=== PATIENT | male | born 1970 | race Caucasian/White ===

== ENCOUNTER 2023-10-09 10:21 | Inpatient (IN) | payer SELFPAY ==
[2023-10-09] VITALS (49 sets, daily range): BP systolic 109–195; BP diastolic 83–144; PULSE 122–154; RESP 18–35; TEMP 36.7–38.2; O2SAT 83–97; BMI 35.5; BMI 32.2
--- NOTE | 2023-10-09 10:26 | ECG_ITS ---
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 Measurements Intervals [place] Rate: 159 P: 0 NE: 0 QRS: 77 QRSD: 82 T: 70 QT: 265 QTc: 432 Interpretive Statements Sinus/ Atrial tachycardia No previous ECG available for comparison Electronically Signed On 10-09-2023 11:43:02 CDT by Hasmukh Jorge M.D. [id number]
--- NOTE | 2023-10-09 10:31 | XR_ITS ---
WS: [id number] Exam: XR chest 1V portable [id number] Date/Time of Exam: 10/09/2023 10:33 AM Reason For Exam: sob Comparison 03/03/2010. There is infiltrate and atelectasis in the RIGHT lower lung zone. Remaining lung mcgee are clear. Th e lungs are fully inflated. No pleural effusions. Normal cardiomediastinal silhouette. Bony structure s are intact. XR/XR chest 1V portable [id number] IMPRESSION: 1. Infiltrate and atelectasis in the RIGHT lower lung zone. Suspicious for pneu monia.
--- NOTE | 2023-10-09 10:33 | W.ED.SOB ---
HPI - SOB/Dyspnea General: Chief Complaint: Shortness of Breath/Dyspnea Stated Complaint: SOB Time Seen by Provider: 10/09/23 10:23 Source: patient Mode of arrival: ambulatory Limitations: no limitations History of Present Illness: HPI Narrative: 53-year-old male with history of alcoholism states he drinks daily states the last 2 days he is had severe shakes feeling short of breath having chest pain or palpitations. He is diaphoretic here in tachycardic in the 140s with hypertension. He states he had 2 drinks this morning he denies any vomiting no history of any heart problems denies any drug use Associated symptoms: Deny abdominal pain, chest pain, fever(s), nausea or vomiting Related Data Home Medications Medication Instructions Recorded Confirmed No Known Home Medications 05/28/20 10/09/23 Allergies Allergy/AdvReac Type Severity Reaction Status Date / Time No Known Allergies Allergy Verified 05/28/20 16:30 Review of Systems Const: Denies: fever(s), chills, body aches or change in appetite ENMT: Denies: throat pain or dental pain Card: Denies: chest pain Resp: Reports: dyspnea GI: Denies: abdominal pain, nausea, vomiting or diarrhea Musc: Denies: neck pain or back pain Skin/Breast: Denies: rash Neuro: Denies: headache(s) PFSH ED PFSH: Medical History (Updated 10/09/23 @ 14:19 by He Naranjo MD) Alcohol dependence History of CVA (cerebrovascular accident) 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 Social History (Updated 10/09/23 @ 13:32 by Darcy Miller MD) Smoking and tobacco/nicotine status: current every day tobacco/nicotine user Alcohol intake: current Alcohol use comment: daily Physical Exam Const: COMMON NORMALS: patient oriented x3 GENERAL APPEARANCE: ill appearing HENMT: COMMON NORMALS: normocephalic and atraumatic HEAD & SCALP: normocephalic and atraumatic Eye: COMMON NORMALS: Equal, round and reactive pupils present and EOMs intact bilaterally PUPIL: Yes Equal, round and reactive pupils present Neck/C-Spine: COMMON NORMALS: full ROM and supple Chest: COMMONS NORMALS: normal inspection of the chest Resp: COMMON NORMALS: normal respiratory effort, No retractions, No use of accessory muscles and clear to auscultation bilaterally AUSCULTATION: clear to auscultation bilaterally Cardio: COMMON NORMALS: No murmurs present (Cardio) RATE: tachycardic GI: COMMON NORMALS: Normal to inspection, nondistended, normoactive bowel sounds present, Soft to palpation, non-tender and no masses PALPATION: Yes Soft to palpation Extremity: COMMON NORMALS: normal to inspection and full ROM Neuro: COMMON NORMALS: patient oriented x3, moves all extremities and no focal motor deficits Psych: COMMON NORMALS: mental status grossly normal, Normal thought process present and cooperative THOUGHT PROCESS: Normal thought process present Skin: COMMON NORMALS: no rashes or lesions noted and no wounds GENERAL SKIN EXAM: no rashes or lesions noted Course Vital Signs: Vital signs: Vital Signs Temperature 98.0 F 10/09/23 10:28 Pulse Rate 142 H 10/09/23 13:18 Respiratory Rate 18 10/09/23 12:16 Blood Pressure 164/107 10/09/23 12:55 Pulse Oximetry 94 10/09/23 12:55 Oxygen Delivery Me thod Room Air 10/09/23 12:55 Oxygen Flow Rate 2 10/09/23 12:16 MDM - SOB/Dyspnea Medical Decision Making Patient presents here with severe alcohol withdrawal has been given multiple doses of Ativan has had some improvement in blood pressure and heart rate he is also found to have a pneumonia along with him metabolic acidosis. His lactate is improved here after IV fluids edema started on IV antibiotics as well I spoke to hospitalist will admit to ICU for his pneumonia and his alcohol withdrawal Medical Records I reviewed the patient's medical records. Lab Data I reviewed the patient's lab results. 10/09/23 10:30 10/09/23 10:30 Labs/Radiology: Radiology Impressions Chest X-Ray 10/09/23 10:31 IMPRESSION: 1. Infiltrate and atelectasis in the RIGHT lower lung zone. Suspicious for pneumonia. Chest CTA 10/09/23 11:10 IMPRESSION: 1. No evidence of pulmonary embolus. 2. Patchy tree-in-bud opacities with subsegmental atelectasis in the RIGHT upper lobe and RIGHT middle lobe likely infectious or inflammatory. 3. No focal consolidation or pleural fluid. Laboratory Results WBC 9.73 10^3/uL (3.29-11.43) 10/09/23 10:30 RBC 4.78 10^6/uL (3.85-5.65) 10/09/23 10:30 Hgb 17.60 g/dL (11.27-16.99) H 10/09/23 10:30 Hct 49.9 % (37-53) 10/09/23 10:30 MCV 104.4 fl (82-101) H 10/09/23 10:30 MCH 36.8 pg (27-33) H 10/09/23 10:30 MCHC 35.3 g/dL (30-55) 10/09/23 10:30 RDW 12.9 % (12.1-15.1) 10/09/23 10:30 Plt Count 102 10^3/cmm (157-399) L 10/09/23 10:30 MPV 10.2 fL (7.4-10.4) 10/09/23 10:30 Neut % (Auto) 86.0 % 10/09/23 10:30 Lymph % (Auto) 7.8 % 10/09/23 10:30 Phelps % (Auto) 5.5 % 10/09/23 10:30 Eos % (Auto) 0.1 % 10/09/23 10:30 Baso % (Auto) 0.3 % 10/09/23 10:30 Neut # (Auto) 8.36 10^3/uL (1.8-7.7) H 10/09/23 10:30 Lymph # (Auto) 0.8 10^3/uL (0.8-4.8) 10/09/23 10:30 Phelps # (Auto) 0.5 10^3/uL (0.2-0.9) 10/09/23 10:30 Eos # (Auto) 0.0 10^3/uL (0.0-0.8) 10/09/23 10:30 Baso # (Auto) 0.0 10^3/uL (0.0-0.1) 10/09/23 10:30 Nucleated RBC % (auto) 0 % 10/09/23 10:30 Nucleated RBCs # 0.0 /100WBC 10/09/23 10:30 PT 13.10 SECONDS (12.1-14.9) 10/09/23 10:30 INR 0.96 (0.8-1.2) 10/09/23 10:30 APTT 32.9 SECONDS (23.9-36.7) 10/09/23 10:30 D-Dimer 8.03 ug/mLFEU (0-0.59) H 10/09/23 10:30 Specimen Type Arterial 10/09/23 11:24 Sample Site Radial, left 10/09/23 11:24 ABG pH 7.41 (7.35-7.45) 10/09/23 11:24 ABG pCO2 30.3 mmHg (35-45) L 10/09/23 11:24 ABG pO2 71.3 mmHg (80.0-100.0) L 10/09/23 11:24 ABG PO2/FiO2 Ratio 274 10/09/23 11:24 ABG HCO3 19.1 mmol/L (22-26) L 10/09/23 11:24 ABG Base Excess -4.3 mmol/L (-2.0-2.0) L 10/09/23 11:24 Jasper Test Pos 10/09/23 11:24 Hematocrit 47.3 % (42-52) 10/09/23 11:24 O2 Delivery Device Nc 10/09/23 11:24 FiO2 26.0 % 10/09/23 11:24 Geotechnical Field Technician ID glc 10/09/23 11:24 Sodium 129 mmol/L (136-145) L 10/09/23 10:30 Sodium 130 mmol/L (136-145) L 10/09/23 10:30 Potassium 4.1 mmol/L (3.5-5.1) 10/09/23 10:30 Potassium 4.2 mmol/L (3.5-5.1) 10/09/23 10:30 Chloride 86 mmol/L (98-107) L 10/09/23 10:30 Chloride 87 mmol/L (98-107) L 10/09/23 10:30 Carbon Dioxide 15 mmol/L (22-29) L 10/09/23 10:30 Carbon Dioxide 16 mmol/L (22-29) L 10/09/23 10:30 Anion Gap 31.2 (5-19) H 10/09/23 10:30 Anion Gap 32.1 (5-19) H 10/09/23 10:30 BUN 4 mg/dL (6-20) L 10/09/23 10:30 BUN 4 mg/dL (6-20) L 10/09/23 10:30 Creatinine 0.8 mg/dL (0.7-1.2) 10/09/23 10:30 Creatinine 0.8 mg/dL (0.7-1.2) 10/09/23 10:30 GFR Calculation 100.7 mL/min (90-130) 10/09/23 10:30 GFR Calculation 100.7 mL/min (90-130) 10/09/23 10:30 Glucose 132 mg/dL (65-115) H 10/09/23 10:30 Glucose 133 mg/dL (65-115) H 10/09/23 10:30 Calculated Osmolality 267 mOsm/kg (285-295) L 10/09/23 10:30 Calculated Osmolality 269 mOsm/kg (285-295) L 10/09/23 10:30 Lactic Acid 12.5 mmol/L (0.5-2.2) H* 10/09/23 10:30 Lactic Acid (Sepsis) 4.2 mmol/L (0.5-2.2) H* 10/09/23 13:26 Calcium 9.1 mg/dL (8.5-10.5) 10/09/23 10:30 Calcium 9.3 mg/dL (8.5-10.5) 10/09/23 10:30 Phosphorus 3.8 mg/dL (2.5-4.5) 10/09/23 10:30 Magnesium 1.6 mg/dL (1.7-2.3) L 10/09/23 10:30 Total Bilirubin 1.5 mg/dL (0.15-1.2) H 10/09/23 10:30 AST 90 U/L (0-40) H 10/09/23 10:30 ALT 94 U/L (0-41) H 10/09/23 10:30 Alkaline Phosphatase 115 U/L (40-130) 10/09/23 10:30 Troponin T Baseline 18 ng/L (0-15) H 10/09/23 10:30 Troponin T 120 Minute 18.55 ng/L (0-15) H 10/09/23 12:30 Delta Troponin T 0.55 ABS# (0-10) 10/09/23 12:30 NT-Pro-B Natriuret Pep 338 pg/mL (0-125) H 10/09/23 10:30 Total Protein 7.3 g/dL (6.6-8.7) 10/09/23 10:30 Albumin 3.9 g/dL (3.5-5.2) 10/09/23 10:30 Globulin 3.4 g/dL (1.3-4.6) 10/09/23 10:30 Ethyl Alcohol < 10 mg/dL (0-10) 10/09/23 10:30 Serum Ketones Negative (Negative) 10/09/23 11:41 SARS-CoV-2 Ag (Rapid) Negative (Negative) 10/09/23 12:25 All radiology interpretation(s) finalized by discharge EKG Data EKG 1: I personally reviewed and interpreted this EKG as follows: EKG Interpretation Date: 10/09/23 EKG interpretation time: 10:50 Interpretation: sinus tach hr [address] or t wave abnormalities qrs 94 qtc 379 Critical Care Time Critical Care Time: Critical Care Time: Yes Total Critical Care Time: 55 Attestation: The high probability of a clinically significant, sudden or life threatening deterioration of the patient's resp system(s) required my full and direct attention, intervention and personal management. The critical care time is as shown. This time is in addition to time spent performing any reported procedures but includes the following: [x] Data and vital sign review and interpretation [x] Patient assessment, examination and intervention [x] Documentation [x] Medication orders and management Discharge Plan Discharge Patient Disposition: Admitted As Inpatient Admit Provider: Darcy Miller Clinical Impression: High anion gap metabolic acidosis, Alcohol dependence with withdrawal, Pneumonia Condition: Stable Coding Level of Care Code ED Optical Designer for Daynag Melisa
[2023-10-09] MEDS: LORazepam 2 mg/mL INJ 1 mL IVP ×6 (10:35→16:17)
--- NOTE | 2023-10-09 10:35 | PC.NURSE ---
PATIENT PLACED ON 2 L NC PER REQUEST FOR COMFORT.
[2023-10-09] MEDS: dilTIAZem 5 mg/mL SDV 5 mL 20 MG IVP (10:36)
[2023-10-09] MEDS: sodium chloride 0.9% 1,000 ML 999 ML IV ×3 (10:36→12:23)
[2023-10-09 10:47] LABS: Basophils % 0.3 %; Eosinophils % 0.1 %; Hematocrit 49.9 % (37-53); Lymphocytes # 0.8 10^3/uL (0.8-4.8); Lymphocytes % 7.8 %; Mean Corpuscular HGB Conc 35.3 g/dL (30-55); Mean Corpuscular Hemoglobin 36.8 pg (27-33); Mean Corpuscular Volume 104.4 fl (82-101); Mean Platelet Volume 10.2 fL (7.4-10.4); Monocytes # 0.5 10^3/uL (0.2-0.9); Monocytes % 5.5 %; Neutrophils # 8.36 10^3/uL (1.8-7.7); Nucleated Red Blood Cells % 0 %; Platelet Count 102 10^3/cmm (157-399); Red Blood Count 4.78 10^6/uL (3.85-5.65); Red Cell Distribution Width 12.9 % (12.1-15.1); White Blood Count 9.73 10^3/uL (3.29-11.43)
--- NOTE | 2023-10-09 10:50 | ECG_ITS ---
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 Measurements Intervals [place] Rate: 138 P: 39 NM: 145 QRS: 67 QRSD: 94 T: 59 QT: 299 QTc: 453 Interpretive Statements SINUS TACHYCARDIA No previous ECG available for comparison Electronically Signed On 10-09-2023 11:00:14 CDT by Hasmukh Jorge M.D. [id number]
[2023-10-09 11:01] LABS: Troponin(5th) Baseline 18 ng/L (0-15)
[2023-10-09 11:03] LABS: D Dimer 8.03 ug/mLFEU (0-0.59)
[2023-10-09 11:08] LABS: Alanine Aminotransferase 94 U/L (0-41); Albumin Level 3.9 g/dL (3.5-5.2); Alkaline Phosphatase 115 U/L (40-130); Anion Gap 31.2 (5-19); Aspartate Amino Transferase 90 U/L (0-40); Blood Urea Nitrogen 4 mg/dL (6-20); Calcium 9.1 mg/dL (8.5-10.5); Carbon Dioxide 16 mmol/L (22-29); Chloride 87 mmol/L (98-107); Globulin 3.4 g/dL (1.3-4.6); Glomerular Filtration Rate 100.7 mL/min (90-130); Glucose 133 mg/dL (65-115); Magnesium 1.6 mg/dL (1.7-2.3); NT Pro B Type Natriuretic Pept 338 pg/mL (0-125); Osmolality Calculated 269 mOsm/kg (285-295); Potassium 4.2 mmol/L (3.5-5.1); Sodium 130 mmol/L (136-145); Total Bilirubin 1.5 mg/dL (0.15-1.2); Total Protein 7.3 g/dL (6.6-8.7)
[2023-10-09 11:09] LABS: Alcohol Level < 10 mg/dL (0-10)
--- NOTE | 2023-10-09 11:10 | CT_ITS ---
WS: [id number] CTA OF THE CHEST WITH PULMONARY EMBOLISM PROTOCOL TECHNIQUE: High-resolution contrast enhanced CTA of the chest with coronal and sagittal reformatted i jhoans with pulmonary embolism protocol. MIP images are also reviewed. CLINICAL INFORMATION: sob COMPARISON: None. DLP: 491.[address] scans at [facility] use at least one of these dose optimization techniques: automated e xposure control; mA and/or kV adjustment per patient size (includes targeted exams where dose is matc hed to clinical indication); or iterative reconstruction. FINDINGS: Proximal main pulmonary arteries are normal. Normal segmental and subsegmental pulmonary arteries. No evidence of pulmonary embolus. No mediastinal or hilar lymphadenopathy. No axillary lymphadenopathy. Adrenal glands are normal. Part ially visualized RIGHT renal cyst. Diffuse fatty infiltration of the liver. Small esophageal hiatal h ernia. Partially visualized mesenteric edema in the upper abdomen. Hypertrophic changes thoracic spine. Tree-in-bud type infiltrates in the RIGHT upper lobe and RIGHT m iddle lobe with subsegmental atelectasis. No focal pneumonia or pleural fluid. CT/CT angio chest PE protcl [id number] IMPRESSION: 1. No evidence of pulmonary embolus. 2. Patchy tree-in-bud opacities with subsegmental atelectasis in the RIGHT upp er lobe and RIGHT middle lobe likely infectious or inflammatory. 3. No focal consolidation or pleural fluid.
[2023-10-09 11:36] LABS: ABG PCO2 30.3 mmHg (35-45); ABG PH Result 7.41 (7.35-7.45); Arterial Blood Gas Hematocrit 47.3 % (42-52); Base Excess ABG -4.3 mmol/L (-2.0-2.0); Blood Gas Allen Test Pos; Blood Gas Operator Identificat glc; Blood Gas Sample Site Radial, left; Blood Gas Sample Type Arterial; HCO3 ABG 19.1 mmol/L (22-26); Oxygen Device NC; PO2 ABG 71.3 mmHg (80.0-100.0); PO2 FiO2 Ratio Arterial Blood 274
[2023-10-09 11:43] LABS: Lactic Sepsis W/Reflex 12.5 mmol/L (0.5-2.2)
[2023-10-09] MEDS: cefTRIAXone 1,000 mg SDV 1000 MG IVP (11:47)
[2023-10-09] MEDS: azithromycin 500 MG in sodium chloride 0.9% 250 ML 250 MG IV (11:50)
[2023-10-09 12:15] LABS: Ketone (Acetest) Serum Negative (Negative)
[2023-10-09] MEDS: iohexol 350 mg/mL 500 mL Btl (per mL) IV ×2 (12:16→15:20)
--- NOTE | 2023-10-09 12:48 | P.HP_ITS ---
Providers/Chief Complaint 2 Admitting Physician: Darcy Miller MD Primary Care Provider: Unknown Chief Complaint: SOB History of Present Illness Vinh Fuentes is a 53 year old male who presented to the emergency room on the day of admission via EMS with complaints of shortness of breath and the shakes. He has a history of drinking alcohol daily and has had the shakes for couple of days. He denied vomiting or chest pain to ER physicians. Noted to be tachycardic, diaphoretic and hypertensive. He had received more than 10 mg of Ativan by the time of my evaluation and was not able to answer questions or follow commands. Workup in the emergency room identified right sided pneumonia for which she received Rocephin and azithromycin. He had an elevated lactic acid and was started on fluids at 30 mL/kg. Not hypotensive but did have a drop in blood pressures from 190 systolic at presentation to 140 systolic after benzodiazepines. Heart rate remains tachycardic. Limited clinical information available. 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 Was discharged non aspirin and statin. Seen at walk in clinic in 2020 for cellulitis. Alcohol and tobacco use documented at that time. No other known visits to [facility]. PDMP check and review of available external medications shows no prescriptions. PFSH not updated/unobtainable from patient: due to medical condition and due to mental status Vitals/I&O/Wt Last Vital Signs Temp 98.0 F 10/09/23 10:28 Pulse 132 H 10/09/23 12:16 Resp 18 10/09/23 12:16 BP 143/93 10/09/23 12:16 Pulse Ox 95 10/09/23 12:16 O2 Del Method Nasal Cannula 10/09/23 12:16 O2 Flow Rate 2 10/09/23 12:16 10/08/23 10/09/23 10/09/23 22:59 06:59 14:59 Intake Total 1999 Balance 1999 Weight last 48 hrs Weight 99.79 kg Physical Exam 2 Narrative: Patient is not currently alert. Does not respond directly to questions but will moan something that sounds like stop intermittently during exam. Very tremulous. EOMI with sevral beat lateral nystagmus noted. [place] sclera. OP dry. Neck supple with good range of motion, no tenderness with movement noted. Course BS bilaterally with upper airway noise. Some cough and crackles, pursed lips intermittently, some retractions, tachypenic. Tachycardic regular rhythm. Airway noises and mumbling preclude other heart sound auscultation at present. Abdomen is soft, no focal tenderness noted. Rotund but not tympanic. Scrotal enlargement noted right sided more than left. Not reducible with several attempts. Discomfort on exam but difficult to localize with current mental status. Some erythema in groin. No areas of bruising noted. Not mottled. Hands with dirt noted. Moves all extremities but not cooperative. Quick SOFA Score: Respiratory Rate: 20 Blood Pressure: 150/100 Julian Coma Scale: 12 qSOFA Score: 1 If qSOFA score 2 or greater, continue: PaO2/FiO2 Ratio (mmHg): 328 Blood Pressure Mean: 126 Bilirubin (mg/dl): 1.5 Platelets (x10?/ml): 102 C reatinine (mg/dl): 0.8 SOFA Score: 5 Evaluation: Current stage of sepsis: severe sepsis Sepsis stage criteria used: [facility] Sep- Crystalloid fluids: 30 mL/kg crystalloid fluids ordered and initiated within 3 hours Blood cultures ordered: Yes Possible source: p ulmonary, GI tract/intra-abdominal and genitourinary Focused Exam: Vital signs: Temp Pulse Resp BP Pulse Ox O2 Del Method O2 Flow Rate 10/09/23 13:18 142 H 10/09/23 12:55 125 H 164/107 94 Room Air 10/09/23 12:16 132 H 18 143/93 95 Nasal Cannula 2 10/09/23 10:34 96 Nasal Cannula 2 10/09/23 10:28 98.0 F 154 H 35 H 195/144 94 Room Air Respiratory exam: crackles present (upper airway noise, throat clearing, able to lay flat and sats okay) and uses accessory muscles (purse lips at times) Cardiovascular exam: tachycardia Peripheral pulse strength: 1+ Faint P eripheral pulse location: Radial and Pedal Skin exam: diaphoretic and other (scattered sores, dirty hands); no mottling Details: enlarged scrotum, not reducible Initial SOFA score 4 at time of my initial examination at 13:48 Date exam was performed: 10/09/23 Time exam was performed: 13:48 2 Sepsis Screen No Definite Risk 10/09/23 13:18 Respiratory Rate 20 breaths/min H (12 - 18) 10/09/23 14:30 Blood Pressure 150/100 mmHg 10/09/23 14:30 Julian Coma Scale Score 12 10/09/23 14:48 Quick SOFA Score 1 10/09/23 16:33 SOFA Score: 2 ABG PO2/FiO2 Ratio 286 10/09/23 16:25 Julian Coma Scale Score 12 10/09/23 14:48 Blood Pressure Mean 126 mmHg 10/09/23 12:55 Total Bilirubin 1.5 mg/dL (0.15-1.2) H 10/09/23 10:30 Platelet Count 102 10^3/cmm (157-399) L 10/09/23 10:30 Creatinine 0.8 mg/dL (0.7-1.2) 10/09/23 10:30 SOFA Score 5 10/09/23 16:33 Data 10/09/23 10:30 10/09/23 10:30 Other Labs: Radiology Impressions Chest X-Ray 10/09/23 10:31 IMPRESSION: 1. Infiltrate and atelectasis in the RIGHT lower lung zone. Suspicious for pneumonia. Chest CTA 10/09/23 11:10 IMPRESSION: 1. No evidence of pulmonary embolus. 2. Patchy tree-in-bud opacities with subsegmental atelectasis in the RIGHT upper lobe and RIGHT middle lobe likely infectious or inflammatory. 3. No focal consolidation or pleural fluid. Laboratory Results WBC 9.73 10^3/uL (3.29-11.43) 10/09/23 10:30 RBC 4.78 10^6/uL (3.85-5.65) 10/09/23 10:30 Hgb 17.60 g/dL (11.27-16.99) H 10/09/23 10:30 Hct 49.9 % (37-53) 10/09/23 10:30 MCV 104.4 fl (82-101) H 10/09/23 10:30 MCH 36.8 pg (27-33) H 10/09/23 10:30 MCHC 35.3 g/dL (30-55) 10/09/23 10:30 RDW 12.9 % (12.1-15.1) 10/09/23 10:30 Plt Count 102 10^3/cmm (157-399) L 10/09/23 10:30 MPV 10.2 fL (7.4-10.4) 10/09/23 10:30 Neut % (Auto) 86.0 % 10/09/23 10:30 Lymph % (Auto) 7.8 % 10/09/23 10:30 Hickman % (Auto) 5.5 % 10/09/23 10:30 Eos % (Auto) 0.1 % 10/09/23 10:30 Baso % (Auto) 0.3 % 10/09/23 10:30 Neut # (Auto) 8.36 10^3/uL (1.8-7.7) H 10/09/23 10:30 Lymph # (Auto) 0.8 10^3/uL (0.8-4.8) 10/09/23 10:30 Hickman # (Auto) 0.5 10^3/uL (0.2-0.9) 10/09/23 10:30 Eos # (Auto) 0.0 10^3/uL (0.0-0.8) 10/09/23 10:30 Baso # (Auto) 0.0 10^3/uL (0.0-0.1) 10/09/23 10:30 Nucleated RBC % (auto) 0 % 10/09/23 10:30 Nucleated RBCs # 0.0 /100WBC 10/09/23 10:30 D-Dimer 8.03 ug/mLFEU (0-0.59) H 10/09/23 10:30 Specimen Type Arterial 10/09/23 11:24 Sample Site Radial, left 10/09/23 11:24 ABG pH 7.41 (7.35-7.45) 10/09/23 11:24 ABG pCO2 30.3 mmHg (35-45) L 10/09/23 11:24 ABG pO2 71.3 mmHg (80.0-100.0) L 10/09/23 11:24 ABG PO2/FiO2 Ratio 274 10/09/23 11:24 ABG HCO3 19.1 mmol/L (22-26) L 10/09/23 11:24 ABG Base Excess -4.3 mmol/L (-2.0-2.0) L 10/09/23 11:24 [place] Test Pos 10/09/23 11:24 Hematocrit 47.3 % (42-52) 10/09/23 11:24 O2 Delivery Device Nc 10/09/23 11:24 FiO2 26.0 % 10/09/23 11:24 Property Condition Assessor ID glc 10/09/23 11:24 Sodium 130 mmol/L (136-145) L 10/09/23 10:30 Potassium 4.2 mmol/L (3.5-5.1) 10/09/23 10:30 Chloride 87 mmol/L (98-107) L 10/09/23 10:30 Carbon Dioxide 16 mmol/L (22-29) L 10/09/23 10:30 Anion Gap 31.2 (5-19) H 10/09/23 10:30 BUN 4 mg/dL (6-20) L 10/09/23 10:30 Creatinine 0.8 mg/dL (0.7-1.2) 10/09/23 10:30 GFR Calculation 100.7 mL/min (90-130) 10/09/23 10:30 Glucose 133 mg/dL (65-115) H 10/09/23 10:30 Calculated Osmolality 269 mOsm/kg (285-295) L 10/09/23 10:30 Lactic Acid 12.5 mmol/L (0.5-2.2) H* 10/09/23 10:30 Calcium 9.1 mg/dL (8.5-10.5) 10/09/23 10:30 Magnesium 1.6 mg/dL (1.7-2.3) L 10/09/23 10:30 Total Bilirubin 1.5 mg/dL (0.15-1.2) H 10/09/23 10:30 AST 90 U/L (0-40) H 10/09/23 10:30 ALT 94 U/L (0-41) H 10/09/23 10:30 Alkaline Phosphatase 115 U/L (40-130) 10/09/23 10:30 Troponin T Baseline 18 ng/L (0-15) H 10/09/23 10:30 Delta Troponin T 0.55 ABS# (0-10) 10/09/23 12:30 NT-Pro-B Natriuret Pep 338 pg/mL (0-125) H 10/09/23 10:30 Total Protein 7.3 g/dL (6.6-8.7) 10/09/23 10:30 Albumin 3.9 g/dL (3.5-5.2) 10/09/23 10:30 Globulin 3.4 g/dL (1.3-4.6) 10/09/23 10:30 Ethyl Alcohol < 10 mg/dL (0-10) 10/09/23 10:30 Serum Ketones Negative (Negative) 10/09/23 11:41 Micro: Microbiology 10/09/23 11:16 Blood Culture - Preliminary Blood SPECIMEN COLLECTED 10/09/23 10:30 Blood Culture - Preliminary Blood SPECIMEN COLLECTED A&P Assessment and plan (1) Pneumonia: Organism unknown, present on admission with patchy tree-in-bud opacities with subsegmental atelectasis noted on CTA of the chest and complaints of increasing shortness of breath noted by ER. With right sided features aspiration pneumonia is within differential. Does have a slight left shift. Not lymphopenic. COVID antigen negative. Qualifiers: Laterality: right Lung location: upper lobe of lung (2) Alcohol dependence with withdrawal: Alcoholic with daily drinking per limited information available. Has not been drinking as much for a few days and presents with acute withdrawal with delirium. No seizures thus far. Has required high-dose benzodiazepines thus far. Has associated significant tachycardia and hypertension. Additionally has elevated liver enzymes and low platelets. Qualifiers: Complication of substance-induced condition: with delirium Qualified Code(s): F10.231 - Alcohol dependence with withdrawal delirium (3) High anion gap metabolic acidosis: Serum ketones negative. Not known to be diabetic. Lactic acid is elevated. Could be from alcohol. No available information suggesting methanol, ethylene glycol or isopropyl alcohol ingestion but it is certainly within the differential as or other toxins. Urine drug screen is ordered but pending. No report of GI losses. Renal function currently normal. (4) Elevated troponin: Negative 2-hour tropoinin delta. EKG with nonspecific changes. Could be type II process from tachycardia and significant hypertension present on admission. (5) Thrombocytopenia: Platelet count 102 at presentation. Currently suspect secondary to alcohol use (6) Elevated liver enzymes: Elevated total bilirubin, AST and ALT at presentation 1.6, 90 and 94 respectively. Alkaline phosphatase is normal. No baselines for comparison. Chronic alcohol use, other hepatotoxicity, hepatic congestion, infection, inflammation all within differential. (7) Elevated d-dimer: D-dimer at presentation 8. CTA of the chest no evidence of PE. (8) Scrotal anomaly: Enlarged scrotum with what feels like nonreducible hernia extending along the right side. Hydrocele also within the differential but seems less likely. Testes are palpable. Duration of hernia is not known at this time. (9) Severe sepsis: Severe sepsis (by SEP-1 criteria) from infection is within differential of overall presentation at this point in time though I strongly suspect majority of abnormalities suggesting severe sepsis are secondary to alcohol use and its aftereffects in the setting of acute withdrawal. Potential sources of infection include pulmonary and genitourinary/GI with scrotal abnormally noted. Other potential sources of infection not currently evident should also be considered. Patient has had fever, tachycardia, tachypnea, left shift without elevation in wbc, lactic acidosis, elevated liver enzymes, elevated D-dimer, elevated tropoin, low platelets, mental status change but not hypotension. Is status post 3 liters fluid in ED and has been started on antibiotics. (10) Nicotine dependence, cigarettes, uncomplicated: Not known to have a history of COPD or asthma though it is certainly possibility, current information limited. Plan Mild elevation in BNP Hypomagnesemia Elevated hemoglobin Inpatient admission, ICU level care Continue Rocephin and azithromycin Add breathing treatments as needed Oxygen therapy as needed Monitor ABGs and clinical condition closely as may require intubation both due to clinical presentation and degree of sedation Administer additional benzodiazepines and monitor response, may have to consider alternative agents for alcohol withdrawal symptoms Received thiamine in the emergency room, will attempt to continue oral thiamine and folate plus multivitamin thereafter Replace magnesium Continue fluids Check lipase, PT, PTT, UA; follow up UDS, repeat lactic acid Serial electrolytes until anion gap closes Telemetry monitoring Continue serial cardiac enzymes Repeat EKG in the morning along with A1c and lipid panel for risk stratification Limited echocardiogram to evaluate ejection fraction Check acute hepatitis panel Scrotal ultrasound Blood cultures are pending VTE prophylaxis: SCD, no pharmacological DVT prophylaxis due to low platelets GI Prophylaxis: PPI Antibiotics: Rocephin and Azithromycin started 10/07 Pending studies: blood cultures, covid testing Telemetry: ordered Clarke: ordered Line(s): peripheral IVs Studies to date during hospital stay include: chest x-ray, CTA of the chest and pending scrotal ultrasound Disposition plan: depends on clinical course Code Status: Full Code Supportive care otherwise Need to see if we can locate family to get more prior history and update them on current condition Attestations 2 Medical Necessity Statement*: Anticipated stay greater than two midnights in this gentleman presenting with signs of severe alcohol withdrawal along with findings concerning for severe sepsis by SEP-1 criteria, putting him at risk for progression to sepsis or septic shock by SEP-3 criteria. He has required high-dose benzodiazepines already with limited impact clinically. May require intubation and airway protection for adequate sedation as part of his acute withdrawal management. He will require continuous IV fluids, medication management, serial laboratory studies, close clinical monitoring and is at high risk for rapid clinical decline up to and including the possibility of without and even with treatment. He has an enlarged scrotum of unclear duration so other foci of infection beyond pulmonary a consideration. Further work up pending. Coding Level of Care Code Critical Care >/= 30 minutes Critical care time (in minutes): 100 The high probability of a clinically significant, sudden or life threatening deterioration, as referenced in this documentation, required my full and direct attention, intervention and personal management. The critical care time shown is in addition to time spent performing any reported separately billable procedures and includes the following: [x] Data and vital sign review and interpretation [x ] Patient assessment, examination and intervention [x] Medication orders and management [x] Patient/Family updates as able [x] Care Coordination and Documentation. Diagnoses Scrotal anomaly Q55.20 Severe sepsis A41.9; R65.20 Pneumonia J18.9 Laterality: right Lung location: upper lobe of lung Alcohol dependence with withdrawal delirium F10.231 Complication of substance-induced condition: with delirium High anion gap metabolic acidosis E87.29 Elevated troponin R79.89 Thrombocytopenia D69.6 Elevated liver enzymes R74.8 Elevated d-dimer R79.89 Nicotine dependence, cigarettes, uncomplicated F17.210
[2023-10-09 12:54] LABS: Troponin 5 2HR 18.55 ng/L (0-15); Troponin 5 2HR Delta 0.55 ABS# (0-10)
[2023-10-09] MEDS: multivitamin therapeutic Tablet 1 TAB PO (12:54)
[2023-10-09 13:03] LABS: Reflex Lactate Order REFLEX LACTIC ORDERD
--- NOTE | 2023-10-09 13:17 | PC.NURSE ---
PT IS REACHING AND PULLING ON ALL LINES INCLUDING IV AND MUSHROOM SPAWN MAKER. NURSE USED SOFT RESTRAINTS.
[2023-10-09 13:32] LABS: SARS Covid-2 Antigen Negative (Negative)
[2023-10-09 13:37] LABS: Anion Gap 32.1 (5-19); Blood Urea Nitrogen 4 mg/dL (6-20); Calcium 9.3 mg/dL (8.5-10.5); Carbon Dioxide 15 mmol/L (22-29); Chloride 86 mmol/L (98-107); Glomerular Filtration Rate 100.7 mL/min (90-130); Glucose 132 mg/dL (65-115); Osmolality Calculated 267 mOsm/kg (285-295); Phosphorus 3.8 mg/dL (2.5-4.5); Potassium 4.1 mmol/L (3.5-5.1); Sodium 129 mmol/L (136-145)
[2023-10-09 13:53] LABS: Lactic Acid level (Lactate) 4.2 mmol/L (0.5-2.2)
[2023-10-09] MEDS: LORazepam 2 mg/mL INJ 1 mL 4 MG IVP (13:54)
--- NOTE | 2023-10-09 13:54 | US_ITS ---
WS: [id number] TESTICULAR ULTRASOUND HISTORY: swelling COMPARISON: None available. TECHNIQUE: Real-time and color Doppler imaging or utilized to perform a testicular ultrasound. Limited evaluation of the testicles. Patient was taken for stat exam. Right testicle: 4.2 cm x 2.7 cm x 2.7 cm. Normal size and echogenicity. No mass or torsion. Normal color Doppler is present throughout. Systolic and diastolic velocities are both present. Testicle is being displaced by a large mass along the inguinal canal. Right epididymis: Not visualized well. Left testicle: 4.3 cm x 2.3 cm x 2.0 cm. Normal size and echogenicity. No mass or torsion. Normal color Doppler is present throughout. Systolic and diastolic velocities are both present. Limited evaluation the testicle. There is scrotal wall thickening. Possible mass posterior displacing the testicle. Left epididymis: Not visualized. US/US scrotum [id number] IMPRESSION: 1. Limited evaluation of the testicles. No torsion or mass identified. 2. There is a complex mass extending along the inguinal canals displacing both testicles inferiorly and anteriorly. Differential of this mass is a large omen jefe hernia or complex ascites. CT evaluation would be helpful.
[2023-10-09 13:58] LABS: INR 0.96 (0.8-1.2); Partial Thromboplastin Time 32.9 SECONDS (23.9-36.7)
[2023-10-09 14:04] LABS: ABG PCO2 32.7 mmHg (35-45); ABG PH Result 7.42 (7.35-7.45); Alveolar-Arterial Oxygen Gradi 5.2 mmHg (5-10); Arterial Blood Gas Hematocrit 46.5 % (42-52); Base Excess ABG -2.3 mmol/L (-2.0-2.0); Blood Gas Allen Test Pos; Blood Gas Operator Identificat glc; Blood Gas Sample Site Radial, right; Blood Gas Sample Type Arterial; Carboxyhemoglobin 2.8 %THgb (0.4-20.1); HCO3 ABG 21.3 mmol/L (22-26); Ionized Calcium Level - ABG 1.1 mmol/L (1.1-1.4); Oxygen Device ROOM AIR; Oxygen Saturation ABG 94.6; PO2 ABG 68.9 mmHg (80.0-100.0); PO2 FiO2 Ratio Arterial Blood 328; Potassium Level - ABG 3.9 mmol/L (3.5-5.0); Total Hemoglobin 15.2 g/dL (14-18)
[2023-10-09] MEDS: LORazepam 2 mg/mL INJ 1 mL 6 MG IVP ×3 (14:39→22:15)
[2023-10-09] MEDS: pantoprazole 40 mg SDV IVP (14:40)
[2023-10-09] MEDS: magnesium sulfate premix 2 GM/50 ML PIGGYBACK IV (14:42)
--- NOTE | 2023-10-09 14:57 | CTR_ITS ---
PROCEDURE INFORMATION: Exam: CT Abdomen And Pelvis With Contrast Exam date and time: 10/09/2023 3:11 PM Age: 53 years old Clinical indication: Abdominal pain; Additional info: Inguinal hernia with extension to scrotum, sepsis, please scan to mid femur to include entire scrotum, scrotum TECHNIQUE: Imaging protocol: Computed tomography of the abdomen and pelvis with contrast. Axial, coronal and sagittal reformatted images were created and reviewed. Radiation optimization: All CT scans at this facility use at least one of these dose optimization techniques: automated exposure control; mA and/or kV adjustment per patient size (includes targeted exams where dose is matched to clinical indication); or iterative reconstruction. Contrast material: [id number]; Contrast volume: 100 ml; Contrast route: INTRAVENOUS (IV); COMPARISON: US scrotum [id number] 10/09/2023 2:42 PM RADIATION DOSE METRICS: Total DLP (mGy-cm): 1106 FINDINGS: Lungs: Linear stranding and groundglass at the lung bases, likely due to atelectasis and/or scarring. Superimposed reticulonodular infiltrates in the right middle lobe, suggestive of small airway disease. Liver: Mild hepatomegaly. Diffuse hepatic steatosis. Gallbladder and biliary ducts: No radiodense gallstones. No biliary ductal dilatation. Pancreas: Mild peripancreatic stranding, edema and fluid, tracking along the left paracolic gutter. Spleen: Coarse calcified splenic granulomata. Adrenal glands: Normal. No mass. Kidneys and ureters: Right renal cysts, measuring up to 3 cm (no follow-up is indicated based on the imaging appearance). No radiodense calculi. No hydronephrosis. Stomach and bowel: Scattered colonic diverticula without evidence of diverticulitis. No obstruction. No bowel wall thickening. No pneumatosis. Appendix: Normal. Intraperitoneal space: No organized collection. No free air. Vasculature: Mild atherosclerotic disease. No aneurysm or dissection. Lymph nodes: No pathologically enlarged lymph nodes. Urinary bladder: Unremarkable as visualized. Reproductive: Unremarkable. Bones/joints: No acute osseous abnormality. Degenerative changes. Soft tissues: Large, fat containing right inguinal hernia with associated edema and stranding in the hernia sac, possibly secondary to fat incarceration. CT/CT abdomen pelvis w con* [id number] IMPRESSION: 1. Acute pancreatitis, as described above. Correlate with serum amylase and lipase levels. No drainable fluid collection. No necrosis or hemorrhage. Follow-up to resolution is recommended. 2. Large, fat containing right inguinal hernia with associated edema and stranding in the hernia sac, possibly secondary to fat incarceration. 3. Superimposed reticulonodular infiltrates in the right middle lobe, suggestive of small airway disease. Infection cannot be excluded. 4. Additional findings, as above. COMMENTS: Consistent with the [employer]'s Incidental Findings Committee white paper (J Am Sandra Radiol 2018): Any incidental renal lesion less than 1 cm or classified as too small to characterize, or any incidental cystic renal lesion characterized as simple-appearing, is likely benign. No follow-up imaging is recommended for these lesions per consensus recommendations based on imaging criteria.
[2023-10-09 15:21] LABS: Charge for UA Resulting for Rev
--- NOTE | 2023-10-09 15:29 | ECG_ITS ---
[facility] Test Date: 2023-10-09 Pat Name: Vinh Fuentes Department: Room: [facility] Gender: Male Cardiac Rehabilitation Specialist: : 1970 Requested By: He Naranjo Order Number: [id number] Caroline MD: Hasmukh Jorge M.D. Measurements Intervals [place] Rate: 131 P: 55 KS: 167 QRS: 73 QRSD: 83 T: 59 QT: 309 QTc: 458 Interpretive Statements SINUS TACHYCARDIA MODERATE ST DEPRESSION [0.05+ mV ST DEPRESSION] Compared to ECG 10/09/2023 10:50:36 ST (T wave) deviation now present Electronically Signed On 10-09-2023 16:28:15 CDT by Hasmukh Jorge M.D. [id number]
[2023-10-09] MEDS: lactated ringers 1,000 ML 200 ML IV (15:33)
[2023-10-09 15:43] LABS: Amphetamines Screen Urine Negative (Negative); Barbiturates Screen Urine Negative (Negative); Benzodiazepines Screen Urine Positive (Negative); Cocaine Screen Urine Negative (Negative); Opiate Screen Urine Negative (Negative); PCP Screen Urine Negative (Negative); THC Screen Urine Negative (Negative)
--- NOTE | 2023-10-09 16:07 | XRR_ITS ---
PROCEDURE INFORMATION: Exam: XR Chest Exam date and time: 10/09/2023 4:14 PM Age: 53 years old Clinical indication: Device placement; Other: Central line placement; Prior surgery; Surgery date: Post-operative (0-2 days); Additional info: S/P central line placement TECHNIQUE: Imaging protocol: Radiologic exam of the chest. Views: 1 view. COMPARISON: CT angio chest PE protcl [id number] 10/09/2023 12:04 PM FINDINGS: Tubes, catheters and devices: Right internal jugular central venous catheter in place with its tip overlying the cavoatrial junction. Lungs: Unremarkable. No consolidation. Pleural spaces: Unremarkable. No pleural effusion. No clinically significant pneumothorax. Heart/Mediastinum: Unremarkable. No cardiomegaly. Bones/joints: No acute osseous abnormality. Degenerative changes. XR/XR chest 1V portable [id number] IMPRESSION: Right internal jugular central venous catheter in place with its tip overlying the cavoatrial junction. No clinically significant pneumothorax.
[2023-10-09 16:10] LABS: Bilirubin Urine Not Tested (Negative); Blood Urine Not Tested (Negative); Glucose Urine UA Not Tested (Normal); Ketones Urine Not Tested (Negative); Leukocyte Esterase Urine Not Tested (Negative); Nitrate Urine Not Tested (Negative); Protein Urine Not Tested (Negative); Urine Appearance Clear (CLEAR); Urine Color Orange (Yellow); Urobilinogen Urine Not Tested mg/dL (Negative)
[2023-10-09 16:11] LABS: UA Manual Slide Review YES; UA Slide Review UA Slide Review Perf
--- NOTE | 2023-10-09 16:11 | P.ANES_ITS ---
Anesthesia Procedures Procedure/Date: 10/09/23 Central Venous Insert: Central Venous Line: Right IJ central line Time Out Performed: Yes Consent: requested by attending/covering physician Central Line: New Anesthesia monitors: pulse oximetry, EKG and BP cuff Vein cannulated: right internal jugular Ultrasound used: to identify patency to vessel and to visualize needle entry to vein Post procedure: Obtain Chest X-Ray Additional Comments: Patient agitated during procedure. ICU staff including bottle machine operator help sedate patient. Ultrasound indicating wire in vessel. All ports were flushed with saline. Line was secured with suture.
[2023-10-09 16:13] LABS: Add Urine Culture? No; Hyaline Casts Urine 25-40 /lpf; Mucus Urine 1+ /hpf; RBC Urine 0-4 /hpf (0-2); Squamous Epithelial Cell Urine 0-4 /hpf (0-5); WBC Urine 0-4 /hpf (0-5)
[2023-10-09 16:38] LABS: ABG PCO2 34.8 mmHg (35-45); ABG PH Result 7.45 (7.35-7.45); Arterial Blood Gas Hematocrit 45.5 % (42-52); Base Excess ABG 0.7 mmol/L (-2.0-2.0); Blood Gas Allen Test Pos; Blood Gas Operator Identificat MONRO; Blood Gas Sample Site Radial, left; Blood Gas Sample Type Arterial; HCO3 ABG 24.2 mmol/L (22-26); Oxygen Device ROOM AIR; PO2 ABG 60.1 mmHg (80.0-100.0); PO2 FiO2 Ratio Arterial Blood 286
[2023-10-09 16:53] LABS: Lipase 621 U/L (13-60)
[2023-10-09 17:00] LABS: Glucose Point of Care 100 mg/dL (70-110)
[2023-10-09 17:04] LABS: Troponin 5 6HR 24.99 ng/L (0-15); Troponin 5 6HR Delta 6.99 ng/L (0-12)
--- NOTE | 2023-10-09 17:40 | PC.NURSE ---
Brother Tony Fuentes and his son Sg Fuentes came in to see pt at differing times this afternoon. The emergent CVL was discussed with both. BOth were in agreement to having the CVL in place.
[2023-10-09] MEDS: metroNIDAZOLE IV 500 MG/100 ML PREMIX 100 MG IV (17:55)
[2023-10-09 18:55] LABS: Anion Gap 15.8 (5-19); Blood Urea Nitrogen 5 mg/dL (6-20); Calcium 8.1 mg/dL (8.5-10.5); Carbon Dioxide 24 mmol/L (22-29); Chloride 94 mmol/L (98-107); Creatinine Clr Calc Pharmacy 177.9244; Glomerular Filtration Rate 173.3 mL/min (90-130); Glucose 98 mg/dL (65-115); Magnesium 2.4 mg/dL (1.7-2.3); Osmolality Calculated 267 mOsm/kg (285-295); Phosphorus 2.4 mg/dL (2.5-4.5); Potassium 3.8 mmol/L (3.5-5.1); Sodium 130 mmol/L (136-145)
[2023-10-09] MEDS: clotrimazole-betamethasone cream 15gm 1 APPLIC TOPICAL (19:06)
[2023-10-09] MEDS: sodium chloride 0.9 % (flush) syringe 10 mL IV (19:06)
--- NOTE | 2023-10-09 19:13 | PC.NURSE ---
Shift summary: Pt arrived to ICU, agitated and with soft restraints. Dr Miller, at bedside. More ativan admin. Noted pt's scrotum large, misshaped and firm. US ordered and done. More ativan admin per Dr Miller orders. Pt then to CT of abd and scrotum. Magnesium admin LR and abx started. Pt on CIWA with 6mg of Ativan instead of usual 2mg. Pt seems to be more coherent after the ativan admin. CVL inserted emergently. Surgeon consulted for inginual hernia. Bowel blod flow still present will continue to monitor. Pt's Brother , showed up was agreeable to plan of care including CVL. Then Pt's son, Sg arrived, he was also agreeable to paln of care including the CVL. Pt incontinent of urine twice. Fole inserted, he tolerated it reasonable well. Soft restraints remain in palce for his safety as his hands wander and pick and pull at lines and tubes. Pt did deny any pain.
[2023-10-09] MEDS: potassium phosphate (mEq K) 40 MEQ in sodium chloride 0.9% (100 ml) 100 ML 27.27 MEQ IV (19:59)
[2023-10-09 20:54] LABS: Glucose Point of Care 93 mg/dL (70-110)
[2023-10-09] MEDS: dextrose 5%-sod chloride 0.45% 1,000 ML 200 ML IV (21:26)
[2023-10-10] VITALS (79 sets, daily range): BP systolic 82–158; BP diastolic 65–110; PULSE 79–160; RESP 14–41; TEMP 36.1–37.4; O2SAT 86–100; BMI 33.0
[2023-10-10 00:56] LABS: Anion Gap 12.9 (5-19); Blood Urea Nitrogen 5 mg/dL (6-20); Calcium 7.8 mg/dL (8.5-10.5); Carbon Dioxide 25 mmol/L (22-29); Chloride 97 mmol/L (98-107); Creatinine Clr Calc Pharmacy 127.0889; Glomerular Filtration Rate 117.5 mL/min (90-130); Glucose 112 mg/dL (65-115); Magnesium 2.1 mg/dL (1.7-2.3); Osmolality Calculated 270 mOsm/kg (285-295); Phosphorus 3.9 mg/dL (2.5-4.5); Potassium 3.9 mmol/L (3.5-5.1); Sodium 131 mmol/L (136-145)
[2023-10-10] MEDS: LORazepam 2 mg/mL INJ 1 mL 6 MG IVP ×4 (01:06→07:32)
[2023-10-10] MEDS: metroNIDAZOLE IV 500 MG/100 ML PREMIX 100 MG IV ×3 (01:08→17:43)
[2023-10-10] MEDS: D5-NS 0.45% + KCL 20 mEq 20 MEQ/1,000 ML BAG 150 MEQ IV ×4 (02:48→23:37)
[2023-10-10 04:28] LABS: Basophils % 0.1 %; Eosinophils % 0.3 %; Hematocrit 40.5 % (37-53); Lymphocytes # 0.5 10^3/uL (0.8-4.8); Lymphocytes % 7.4 %; Mean Corpuscular HGB Conc 34.6 g/dL (30-55); Mean Corpuscular Hemoglobin 36.6 pg (27-33); Mean Corpuscular Volume 105.7 fl (82-101); Mean Platelet Volume 10.7 fL (7.4-10.4); Monocytes # 0.5 10^3/uL (0.2-0.9); Neutrophils % 84.9 %; Nucleated Red Blood Cells % 0 %; Red Blood Count 3.83 10^6/uL (3.85-5.65); Red Cell Distribution Width 13.4 % (12.1-15.1)
[2023-10-10 04:43] LABS: Magnesium 1.9 mg/dL (1.7-2.3); Phosphorus 2.9 mg/dL (2.5-4.5)
[2023-10-10 04:44] LABS: Lipase 183 U/L (13-60)
[2023-10-10 04:45] LABS: Chol HDL Ratio 1.62 mg/dL (1.0-5.00); Cholesterol 110 mg/dL (0-200); HDL Cholesterol 68 mg/dL (60-100); LDL Cholesterol Calculated 30 mg/dL (50-129); LDL HDL Ratio 0.44 RATIO (0.00-3.22); Triglycerides 58 mg/dL (0-150); Uric Acid 3.3 mg/dL (3.4-7.0)
[2023-10-10 04:46] LABS: Alanine Aminotransferase 75 U/L (0-41); Albumin Level 2.8 g/dL (3.5-5.2); Alkaline Phosphatase 80 U/L (40-130); Anion Gap 12.5 (5-19); Aspartate Amino Transferase 129 U/L (0-40); Blood Urea Nitrogen 5 mg/dL (6-20); Calcium 7.6 mg/dL (8.5-10.5); Carbon Dioxide 24 mmol/L (22-29); Chloride 97 mmol/L (98-107); Creatinine Clr Calc Pharmacy 148.2704; Globulin 2.8 g/dL (1.3-4.6); Glomerular Filtration Rate 140.4 mL/min (90-130); Glucose 96 mg/dL (65-115); Osmolality Calculated 267 mOsm/kg (285-295); Potassium 3.5 mmol/L (3.5-5.1); Sodium 130 mmol/L (136-145); Total Bilirubin 1.1 mg/dL (0.15-1.2); Total Protein 5.6 g/dL (6.6-8.7)
[2023-10-10 04:53] LABS: Platelet Count 69 10^3/cmm (157-399); Slide Review Slide Review Perform
[2023-10-10 05:03] LABS: Hepatitis A Antibody IgM Non-Reactive (Nonreactive); Hepatitis B Core IgM Non-Reactive (Nonreactive); Hepatitis B Surface Antigen Non-Reactive (Nonreactive); Hepatitis C Virus Antibody Non-Reactive (Nonreactive)
[2023-10-10 05:18] LABS: Estmated Average Glucose 117; Hemoglobin A1C 5.7 % (4.0-6.0)
[2023-10-10 06:03] LABS: ABG PCO2 35.1 mmHg (35-45); PO2 ABG 61.1 mmHg (80.0-100.0)
[2023-10-10 06:04] LABS: Base Excess ABG 1.2 mmol/L (-2.0-2.0); HCO3 ABG 24.7 mmol/L (22-26); Oxygen Device NC
[2023-10-10] MEDS: nicotine 21 mg Patch 1 PATCH TRANSDERMA (06:27)
[2023-10-10] MEDS: clotrimazole-betamethasone cream 15gm 1 APPLIC TOPICAL ×3 (07:19→21:03)
[2023-10-10] MEDS: multivitamin therapeutic Tablet 1 TAB PO (07:19)
[2023-10-10] MEDS: folic acid 1 mg Tablet PO (07:19)
[2023-10-10] MEDS: magnesium oxide 400 mg tablet PO (07:19)
[2023-10-10 07:20] LABS: Glucose Point of Care 102 mg/dL (70-110)
[2023-10-10] MEDS: sodium chloride 0.9 % (flush) syringe 10 mL IV ×2 (07:27→17:43)
[2023-10-10 08:47] LABS: ABG PH Result 7.46 (7.35-7.45); Arterial Blood Gas Hematocrit 44.8 % (42-52); Blood Gas Allen Test Pos; Blood Gas Sample Site Radial, right; Blood Gas Sample Type Arterial
[2023-10-10] MEDS: thiamine 100 mg Tablet PO (09:31)
[2023-10-10] MEDS: PHENobarbital 130 mg/mL SDV 1 mL 100 MG IVP (09:33)
[2023-10-10] MEDS: pantoprazole 40 mg SDV IVP (09:34)
[2023-10-10] MEDS: cefTRIAXone 1,000 mg SDV 1000 MG IVP (09:59)
--- NOTE | 2023-10-10 10:08 | ECG_ITS ---
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 Measurements Intervals Wren Rate: 147 P: 28 WV: 138 QRS: 87 QRSD: 84 T: 56 QT: 292 QTc: 457 Interpretive Statements SINUS TACHYCARDIA, POSSIBLE ATRIAL FLUTTER NONSPECIFIC T-WAVE ABNORMALITY ABNORMAL RHYTHM ECG Compared to ECG 10/09/2023 15:29:37 T-wave abnormality now present ST (T wave) deviation no longer present Electronically Signed On 10-11-2023 9:05:15 CDT by Brie Crystal M.D. [id number]
[2023-10-10] MEDS: PHENobarbital 130 mg/mL SDV 1 mL 80 MG IVP ×2 (11:20→15:04)
[2023-10-10] MEDS: azithromycin 500 MG in sodium chloride 0.9% 250 ML 250 MG IV (11:21)
[2023-10-10] MEDS: dexmedeTOMIDine 0.9 % NaCL 400 MCG/100 ML PREMIX IV (11:23)
[2023-10-10 11:36] LABS: Glucose Point of Care 108 mg/dL (70-110)
[2023-10-10] MEDS: LORazepam 2 mg Tablet 6 MG PO (12:21)
--- NOTE | 2023-10-10 12:53 | P.PN_ITS ---
Subjective 2 Subjective: patient was seen this morning, he is alert to person, to place, not to time, he has episodes of confusion he is still requiring high doses of ativan, still having severe tremors, tachycardia, does improve with ativan but is shortlived, -plans is place patient on phenobarbital for severe alcohol withdrawal, nicriomi trem -was given 100mg phenobarbital -his heart rate have impeoved and tremor s have improved, is more alert and awake -will coutinue phenobarbital 80mg q3h fo r 2 doses -will place patient on precedex drip -monitor in icu closely Vitals/I&O/Wt Last Vital Signs Temp 99.1 F 10/10/23 07:34 Pulse 160 H 10/10/23 12:15 Resp 30 H 10/10/23 12:15 BP 117/85 10/10/23 12:15 Pulse Ox 90 10/10/23 12:00 O2 Del Method Nasal Cannula 10/10/23 12:15 O2 Flow Rate 3 10/10/23 12:15 10/09/23 10/10/23 10/10/23 22:59 06:59 14:59 Intake Total 1150 / 4400 208.5106 / 4608.5106 2400.835 / 2400.835 Output Total 300 / 300 250 / 550 Balance 850 / 4100 -41.4894 / 4058.5106 2400.835 / 2400.835 Weight last 48 hrs Weight 93 kg Weight 90.5 kg Weight 99.79 kg Physical Exam 2 Const: COMMON NORMALS: no acute distress EXAM LIMITATIONS: altered mental status ORIENTATION/CONSCIOUSNESS: Yes awake, Yes oriented to person and Yes oriented to place; not oriented to time and not confused Eye: COMMON NORMALS: Equal, round and reactive pupils present PUPIL: Yes Equal, round and reactive pupils present Neck/C-Spine: COMMON NORMALS: no JVD Resp: COMMON NORMALS: normal respiratory effort, No retractions and No use of accessory muscles OTHER: tachypnea Cardio: COMMON NORMALS: no JVD, regular rhythm, S1 normal heart sound present and S2 normal heart sound present RATE: tachycardic RHYTHM: regular rhythm HEART SOUNDS: S1 normal heart sound present and S2 normal heart sound present GI: COMMON NORMALS: Normal to inspection, nondistended, normoactive bowel sounds present and non-tender Extremity: COMMON NORMALS: no pedal edema Neuro: SENSORIUM/ORIENTATION: Yes oriented to person, Yes oriented to place and No oriented to time Urinary Catheter Management: Clarke: Cath Placed During This Visit: yes Reason for Continuing Indwelling Catheter: Accurate Measurement of Urinary Output in Critically Ill Patients Urinary Catheter Date of Insertion: 10/09/23 Urinary Catheter Time of Insertion: 18:15 Data 10/10/23 04:20 10/10/23 04:20 Micro: Microbiology 10/09/23 11:16 Blood Culture - Preliminary Blood NEGATIVE TO DATE 10/09/23 10:30 Blood Culture - Preliminary Blood NEGATIVE TO DATE 10/09/23 14:53 Legionella Urinary Antigen - Final Urine,Clean Catch A&P Assessment and plan (1) Pneumonia: Organism unknown, present on admission with patchy tree-in-bud opacities with subsegmental atelectasis noted on CTA of the chest and complaints of increasing shortness of breath noted by ER. With right sided features aspiration pneumonia is within differential. Does have a slight left shift. Not lymphopenic. COVID antigen negative. -coutinue IV abx Rocephin and azithromycin Qualifiers: Laterality: right Lung location: upper lobe of lung (2) Alcohol dependence with withdrawal: Alcoholic with daily drinking per limited information available. Has not been drinking as much for a few days and presents with acute withdrawal with delirium. No seizures thus far. Has required high-dose benzodiazepines thus far. Has associated significant tachycardia and hypertension. Additionally has elevated liver enzymes and low platelets. -continue phenobarbital -continue precedex Qualifiers: Complication of substance-induced condition: with delirium Qualified Code(s): F10.231 - Alcohol dependence with withdrawal delirium (3) High anion gap metabolic acidosis: Serum ketones negative. Not known to be diabetic. Lactic acid is elevated. Could be from alcohol. No available information suggesting methanol, ethylene glycol or isopropyl alcohol ingestion but it is certainly within the differential as or other toxins. Urine drug screen is ordered, positivr for benzodiazepines. No report of GI losses. Renal function currently normal. (4) Elevated troponin: Negative 2-hour tropoinin delta. EKG with nonspecific changes. Could be type II process from tachycardia and significant hypertension present on admission. (5) Thrombocytopenia: Platelet count 69k Currently suspect secondary to alcohol use (6) Elevated liver enzymes: Elevated total bilirubin, AST and ALT at presentation 1.6, 90 and 94 respectively. Alkaline phosphatase is normal. No baselines for comparison. Chronic alcohol use, other hepatotoxicity, hepatic congestion, infection, inflammation all within differential. (7) Elevated d-dimer: D-dimer at presentation 8. CTA of the chest no evidence of PE. (8) Scrotal anomaly: looks like hernia, will monitor 2. Large, fat containing right inguinal hernia with associated edema and stranding in the hernia sac, possibly secondary to fat incarceration. (9) Severe sepsis: Severe sepsis (by SEP-1 criteria) from infection is within differential of overall presentation at this point in time though I strongly suspect majority of abnormalities suggesting severe sepsis are secondary to alcohol use and its aftereffects in the setting of acute withdrawal. Potential sources of infection include pulmonary and genitourinary/GI with scrotal abnormally noted. Other potential sources of infection not currently evident should also be considered. Patient has had fever, tachycardia, tachypnea, left shift without elevation in wbc, lactic acidosis, elevated liver enzymes, elevated D-dimer, elevated tropoin, low platelets, mental status change but not hypotension. Is status post 3 liters fluid in ED and has been started on antibiotics. Coutinue IV abx, fluids (10) Nicotine dependence, cigarettes, uncomplicated: Not known to have a history of COPD or asthma though it is certainly possibility, current information limited. (11) Delirium tremens: (12) Acute pancreatitis: -npo -IV fluids -flagyl Plan Mild elevation in BNP Hypomagnesemia Elevated hemoglobin Inpatient admission, ICU level care, phenobarbital, precedex drip Continue Rocephin and azithromycin Add breathing treatments as needed Oxygen therapy as needed Monitor clinical condition closely as may require intubation both due to clinical presentation and degree of sedation Administer additional benzodiazepines and monitor response, may have to consider alternative agents for alcohol withdrawal symptoms Received thiamine in the emergency room, will attempt to continue oral thiamine and folate plus multivitamin thereafter Replace magnesium Continue fluids Telemetry monitoring Continue serial cardiac enzymes Repeat EKG in the morning along with A1c and lipid panel for risk stratification Limited echocardiogram to evaluate ejection fraction Check acute hepatitis panel Scrotal ultrasound Blood cultures are pending VTE prophylaxis: SCD, no pharmacological DVT prophylaxis due to low platelets GI Prophylaxis: PPI Antibiotics: Rocephin and Azithromycin started 10/07 Pending studies: blood cultures, covid testing Telemetry: ordered Clarke: ordered Line(s): peripheral IVs Studies to date during hospital stay include: chest x-ray, CTA of the chest and pending scrotal ultrasound Disposition plan: depends on clinical course Code Status: Full Code Supportive care otherwise Need to see if we can locate family to get more prior history and update them on current condition patient was seen this morning, he is alert to person, to place, not to time, he has episodes of confusion he is still requiring high doses of ativan, still having severe tremors, tachycardia, does improve with ativan but is shortlived, -plans is place patient on phenobarbital for severe alcohol withdrawal, delerium tremens -was given 100mg phenobarbital -his heart rate have impeoved and tremors have improved, is more alert and awake -will coutinue phenobarbital 80mg q3h for 2 doses -will place patient on precedex drip -monitor in icu closely Attestations 2 Medical Necessity Statement*: patient requires hospitalization for delerium tremens, alcohol withdrawl, pneumoniae, tachycardia, sepsis, acute pancreatitis Diagnoses Pneumonia J18.9 Laterality: right Lung location: upper lobe of lung Alcohol dependence with withdrawal delirium F10.231 Complication of substance-induced condition: with delirium High anion gap metabolic acidosis E87.29 Elevated troponin R79.89 Thrombocytopenia D69.6 Elevated liver enzymes R74.8 Elevated d-dimer R79.89 Scrotal anomaly Q55.20 Severe sepsis A41.9; R65.20 Nicotine dependence, cigarettes, uncomplicated F17.210 Delirium tremens F10.931 Acute pancreatitis K85.90
--- NOTE | 2023-10-10 16:00 | PC.NURSE ---
CIWA: Pt sedated at this time, Unable to fully score CIWA. Heart rate much improved, was 140's now in 90's. Resp. even, deep and unlabored.
[2023-10-10 16:55] LABS: Glucose Point of Care 116 mg/dL (70-110)
--- NOTE | 2023-10-10 18:32 | PC.NURSE ---
Shift summary: Pt started the day off tachypneic and tachycardic, 30's and 140's respectively. He had 12mg of Ativan since 4 am at beginning of shift. He received another 6mg due to increased agitation and thrashing around. It did seem to help calm him some. He was alert enough this am to swallow medications. His heart rate stayed elevate 140-150's this am. He could state he was in the hospital and get month and day of week correct. He remains on CIWA. He was started on Phenobarbital and Precedex gtt today. He is at this moment resting with eyes closed with deep and even respirations. His heart rate has improved , 80's now. He requires 3lpm/NC. Precedex gtt is at 0.5mcg/kg/hr. His last CIWA was 4. He had 350ml of orage urine output this shift.
[2023-10-10] MEDS: dexmedeTOMIDine 0.9 % NaCL 400 MCG/100 ML PREMIX 11.63 MCG IV (19:12)
[2023-10-10] MEDS: albuterol 2.5 mg/3 mL Neb INHALATION (19:49)
[2023-10-10 20:57] LABS: Glucose Point of Care 120 mg/dL (70-110)
[2023-10-11] VITALS (29 sets, daily range): BP systolic 89–159; BP diastolic 68–100; PULSE 77–128; RESP 15–28; TEMP 36.4–37.2; O2SAT 91–99
[2023-10-11] MEDS: metroNIDAZOLE IV 500 MG/100 ML PREMIX 100 MG IV ×3 (01:10→17:55)
[2023-10-11 04:39] LABS: Basophils % 0.1 %; Eosinophils # 0.1 10^3/uL (0.0-0.8); Eosinophils % 0.9 %; Hematocrit 37.1 % (37-53); Lymphocytes # 0.9 10^3/uL (0.8-4.8); Lymphocytes % 11.6 %; Mean Platelet Volume 11.1 fL (7.4-10.4); Monocytes # 0.7 10^3/uL (0.2-0.9); Monocytes % 8.5 %; Neutrophils # 6.26 10^3/uL (1.8-7.7); Nucleated Red Blood Cells % 0 %; Platelet Count 69 10^3/cmm (157-399); Red Cell Distribution Width 13.2 % (12.1-15.1); White Blood Count 8.02 10^3/uL (3.29-11.43)
[2023-10-11 04:49] LABS: INR 1.23 (0.8-1.2)
[2023-10-11 04:50] LABS: Alanine Aminotransferase 71 U/L (0-41); Albumin Level 2.6 g/dL (3.5-5.2); Alkaline Phosphatase 72 U/L (40-130); Anion Gap 10.8 (5-19); Aspartate Amino Transferase 102 U/L (0-40); Blood Urea Nitrogen 5 mg/dL (6-20); C Reactive Protein 113.5 mg/L (0.0-4.9); Calcium 7.8 mg/dL (8.5-10.5); Carbon Dioxide 24 mmol/L (22-29); Chloride 101 mmol/L (98-107); Creatinine Clr Calc Pharmacy 180.3133; Globulin 2.6 g/dL (1.3-4.6); Glomerular Filtration Rate 173.3 mL/min (90-130); Glucose 113 mg/dL (65-115); Magnesium 2.1 mg/dL (1.7-2.3); Osmolality Calculated 272 mOsm/kg (285-295); Phosphorus 2.6 mg/dL (2.5-4.5); Potassium 3.8 mmol/L (3.5-5.1); Sodium 132 mmol/L (136-145); Total Bilirubin 0.8 mg/dL (0.15-1.2); Total Protein 5.2 g/dL (6.6-8.7)
[2023-10-11 04:59] LABS: NT Pro B Type Natriuretic Pept 329 pg/mL (0-125); Procalcitonin 0.33 ng/mL (0-0.5)
--- NOTE | 2023-10-11 06:00 | USCV_ITS ---
Vinh Fuentes Age: 53 Gender: M : 1970 Exam Date: 10/11/2023 01:06 Ordering Phys: Darcy Miller MD Technologist: NEMO Exam Location: [facility] [place] Indication: check EF BP: 124 / 98 HR: 96 Rhythm: Atrial fibrillation Technical Quality: Adequate MEASUREMENTS (Male / Female) Normal Values 2D ECHO LV Diastolic Diameter PLAX 4.4 cm 4.2 - 5.9 / 3.9 - 5.3 cm IVS Diastolic Thickness 1.3 cm 0.6 - 1.0 / 0.6 - 0.9 cm IVS Systolic Thickness 1.7 cm LVPW Diastolic Thickness 1.7 cm 0.6 - 1.0 / 0.6 - 0.9 cm LVPW Systolic Thickness 1.6 cm LVOT Diameter 1.9 cm LV Ejection Fraction 2D Teich 56.2 % LV Ejection Fraction MOD 4C 42.4 % LV Ejection Fraction MOD 2C 33.5 % LV Ejection Fraction 2C AL 34.4 % LA Diameter 3.1 cm Aorta at Sinotubular Diameter 3.3 cm IVC Diameter 2.3 cm M-MODE LA Ao Ratio MM 0.9 AV Cusp Separation MM 2.0 cm DOPPLER AV Peak Velocity 106.0 cm/s LVOT Peak Velocity 91.0 cm/s AV Area Cont Eq vti 3.0 cm squared AV Area Cont Eq pk 2.5 cm squared MV Area PHT 5.0 cm squared Mitral E to A Ratio 196.5 TV Peak Velocity 278.0 cm/s TR Peak Velocity 287.0 cm/s TR Peak Gradient 32.9 mmHg TV Peak E Velocity 37.0 cm/s Right Atrial Pressure 3.0 mmHg Pulmonary Artery Systolic Pressu 35.9 mmHg PV Peak Velocity 62.0 cm/s FINDINGS Left Ventricle Normal left ventricular size and systolic function, EF 56%. Grade I/IV diastolic dysfunction (abnormal relaxation filling pattern), normal to mildly elevated filling pressures. Right Ventricle The right ventricle is normal in size and function. Right Atrium The right atrium is normal in size. Left Atrium The left atrium is normal in size. Mitral Valve No gross abnormalities noted. Aortic Valve No gross abnormalities noted Tricuspid Valve No gross abnormalities noted Pulmonic Valve No gross abnormalities noted Pericardium Normal pericardium without effusion. Aorta Normal ascending aorta dimension. IVC The inferior vena cava appears normal. CONCLUSIONS Normal left ventricular size and systolic function, EF 56%. Grade I/IV diastolic dysfunction (abnormal relaxation filling pattern), normal to mildly elevated filling pressures. Normal cardiac chamber sizes. There is no pericardial effusion. There are no intracardiac masses. No similar previous studies are available for comparison Dr Brie Crystal MD FAC (Electronically Signed) Final Date: 11 October 2023 18:11 S
[2023-10-11 07:21] LABS: Glucose Point of Care 97 mg/dL (70-110)
[2023-10-11] MEDS: D5-NS 0.45% + KCL 20 mEq 20 MEQ/1,000 ML BAG 150 MEQ IV (07:22)
[2023-10-11] MEDS: albuterol 2.5 mg/3 mL Neb INHALATION ×2 (07:58→13:54)
[2023-10-11] MEDS: multivitamin therapeutic Tablet 1 TAB PO (08:46)
[2023-10-11] MEDS: PHENobarbital 32.4 mg Tablet 64.8 MG PO ×2 (08:46→17:55)
[2023-10-11] MEDS: pantoprazole 40 mg SDV IVP (08:46)
[2023-10-11] MEDS: thiamine 100 mg Tablet PO (08:46)
[2023-10-11] MEDS: folic acid 1 mg Tablet PO (08:46)
[2023-10-11] MEDS: magnesium oxide 400 mg tablet PO ×2 (08:46→17:55)
[2023-10-11] MEDS: clotrimazole-betamethasone cream 15gm 1 APPLIC TOPICAL ×3 (08:52→20:56)
[2023-10-11] MEDS: cefTRIAXone 1,000 mg SDV 1000 MG IVP (10:45)
[2023-10-11] MEDS: azithromycin 500 MG in sodium chloride 0.9% 250 ML 250 MG IV (10:46)
[2023-10-11 11:40] LABS: Glucose Point of Care 77 mg/dL (70-110)
[2023-10-11] MEDS: dexmedeTOMIDine 0.9 % NaCL 400 MCG/100 ML PREMIX IV (12:42)
--- NOTE | 2023-10-11 12:42 | P.PN_ITS ---
Subjective 2 Subjective: Patient was seen this morning, he is alert to person, place, not to time, he follows commands much more alert and awake, afebrile overnight, tachycardia significantly improved, denies any chest pain, no palpitations, shortness of breath continues to have a mild tremor, no visual auditory or tactile hallucination, he has tolerated phenobarbital well, we discussed transitioning to p.o. phenobarbital, tapering dose, he voices understanding, all questions answered, agreed to proceed, Vitals/I&O/Wt Last Vital Signs Temp 97.6 F 10/11/23 04:00 Pulse 91 10/11/23 10:00 Resp 16 10/11/23 10:00 BP 103/74 10/11/23 10:00 Pulse Ox 95 10/11/23 10:00 O2 Del Method Nasal Cannula 10/11/23 10:00 O2 Flow Rate 3 10/11/23 10:00 10/10/23 10/11/23 10/11/23 22:59 06:59 14:59 Intake Total 1218.644 / 3621.904 2107.585 / 5729.489 544.350 / 544.350 Output Total 350 / 350 950 / 1300 Balance 868.644 / 3271.904 1157.585 / 4429.489 544.350 / 544.350 Weight last 48 hrs Weight 95.5 kg Weight 93 kg Weight 90.5 kg Physical Exam 2 Const: COMMON NORMALS: no acute distress EXAM LIMITATIONS: altered mental status ORIENTATION/CONSCIOUSNESS: Yes awake, Yes oriented to person and Yes oriented to place; not oriented to time Resp: COMMON NORMALS: normal respiratory effort, No retractions, No use of accessory muscles and clear to auscultation bilaterally AUSCULTATION: clear to auscultation bilaterally Cardio: COMMON NORMALS: regular rate, regular rhythm, S1 normal heart sound present and S2 normal heart sound present RATE: regular rate RHYTHM: r egular rhythm HEART SOUNDS: S1 normal heart sound present and S2 normal heart sound present GI: COMMON NORMALS: Normal to inspection, nondistended, normoactive bowel sounds present and non-tender Extremity: COMMON NORMALS: no pedal edema Neuro: SENSORIUM/ORIENTATION: Yes oriented to person, Yes oriented to place and No oriented to time Psych: COMMON NORMALS: mental status grossly normal Urinary Catheter Management: Clarke: Cath Placed During This Visit: yes Reason for Continuing Indwelling Catheter: Acute Urinary Retention or Obstruction Urinary Catheter Date of Insertion: 10/09/23 Urinary Catheter Time of Insertion: 18:15 Data 10/11/23 04:20 10/11/23 04:20 Micro: Microbiology 10/09/23 11:16 Blood Culture - Preliminary Blood NEGATIVE TO DATE 10/09/23 10:30 Blood Culture - Preliminary Blood NEGATIVE TO DATE A&P Assessment and plan (1) Pneumonia: Organism unknown, present on admission with patchy tree-in-bud opacities with subsegmental atelectasis noted on CTA of the chest and complaints of increasing shortness of breath noted by ER. With right sided features aspiration pneumonia is within differential. Does have a slight left shift. Not lymphopenic. COVID antigen negative. -coutinue IV abx Rocephin and azithromycin Qualifiers: Laterality: right Lung location: upper lobe of lung (2) Alcohol dependence with withdrawal: Alcoholic with daily drinking per limited information available. Has not been drinking as much for a few days and presents with acute withdrawal with delirium. No seizures thus far. Has required high-dose benzodiazepines thus far. Has associated significant tachycardia and hypertension. Additionally has elevated liver enzymes and low platelets. -Will place on tapering dose of phenobarbital -continue precedex Qualifiers: Complication of substance-induced condition: with delirium Qualified Code(s): F10.231 - Alcohol dependence with withdrawal delirium (3) High anion gap metabolic acidosis: Serum ketones negative. Not known to be diabetic. Lactic acid is elevated. Could be from alcohol. No available information suggesting methanol, ethylene glycol or isopropyl alcohol ingestion but it is certainly within the differential as or other toxins. Urine drug screen is ordered, positivr for benzodiazepines. No report of GI losses. Renal function currently normal. (4) Elevated troponin: Negative 2-hour tropoinin delta. EKG with nonspecific changes. Could be type II process from tachycardia and significant hypertension present on admission. (5) Thrombocytopenia: Platelet count 69k Currently suspect secondary to alcohol use (6) Elevated liver enzymes: Elevated total bilirubin, AST and ALT at presentation 1.6, 90 and 94 respectively. Alkaline phosphatase is normal. No baselines for comparison. Chronic alcohol use, other hepatotoxicity, hepatic congestion, infection, inflammation all within differential. (7) Elevated d-dimer: D-dimer at presentation 8. CTA of the chest no evidence of PE. (8) Scrotal anomaly: looks like hernia, will monitor 2. Large, fat containing right inguinal hernia with associated edema and stranding in the hernia sac, possibly secondary to fat incarceration. (9) Severe sepsis: Severe sepsis (by SEP-1 criteria) from infection is within differential of overall presentation at this point in time though I strongly suspect majority of abnormalities suggesting severe sepsis are secondary to alcohol use and its aftereffects in the setting of acute withdrawal. Potential sources of infection include pulmonary and genitourinary/GI with scrotal abnormally noted. Other potential sources of infection not currently evident should also be considered. Patient has had fever, tachycardia, tachypnea, left shift without elevation in wbc, lactic acidosis, elevated liver enzymes, elevated D-dimer, elevated tropoin, low platelets, mental status change but not hypotension. Is status post 3 liters fluid in ED and has been started on antibiotics. Coutinue IV abx, fluids (10) Nicotine dependence, cigarettes, uncomplicated: Not known to have a history of COPD or asthma though it is certainly possibility, current information limited. (11) Delirium tremens: (12) Acute pancreatitis: ? IV fluids -IV fluids -flagyl Plan Mild elevation in BNP Hypomagnesemia Elevated hemoglobin Inpatient admission, ICU level care, phenobarbital, precedex drip Continue Rocephin and azithromycin Add breathing treatments as needed Oxygen therapy as needed Monitor clinical condition closely as may require intubation both due to clinical presentation and degree of sedation Administer additional benzodiazepines and monitor response, may have to consider alternative agents for alcohol withdrawal symptoms Received thiamine in the emergency room, will attempt to continue oral thiamine and folate plus multivitamin thereafter Replace magnesium Continue fluids Telemetry monitoring Continue serial cardiac enzymes Repeat EKG in the morning along with A1c and lipid panel for risk stratification Limited echocardiogram to evaluate ejection fraction Check acute hepatitis panel Scrotal ultrasound Blood cultures are pending VTE prophylaxis: SCD, no pharmacological DVT prophylaxis due to low platelets GI Prophylaxis: PPI Antibiotics: Rocephin and Azithromycin started 10/07 Pending studies: blood cultures, covid testing Telemetry: ordered Clarke: ordered Line(s): peripheral IVs Studies to date during hospital stay include: chest x-ray, CTA of the chest and pending scrotal ultrasound Disposition plan: depends on clinical course Code Status: Full Code Supportive care otherwise Need to see if we can locate family to get more prior history and update them on current condition Plan for today, wean phenobarbital dosing, Precedex, monitor for worsening withdrawal symptoms, start clear liquid diet speech therapy eval, PT OT, decrease IV fluids to 100 cc an hour Attestations 2 Medical Necessity Statement*: Patient requires hospitalization for acute alcohol withdrawl, delirium tremens, pancreatitis Diagnoses Pneumonia J18.9 Laterality: right Lung location: upper lobe of lung Alcohol dependence with withdrawal delirium F10.231 Complication of substance-induced condition: with delirium High anion gap metabolic acidosis E87.29 Elevated troponin R79.89 Thrombocytopenia D69.6 Elevated liver enzymes R74.8 Elevated d-dimer R79.89 Scrotal anomaly Q55.20 Severe sepsis A41.9; R65.20 Nicotine dependence, cigarettes, uncomplicated F17.210 Delirium tremens F10.931 Acute pancreatitis K85.90
[2023-10-11 14:44] LABS: Ammonia 21 umol/L (16-60)
[2023-10-11] MEDS: D5-NS 0.45% + KCL 20 mEq 20 MEQ/1,000 ML BAG 100 MEQ IV (16:59)
--- NOTE | 2023-10-11 17:44 | P.CONIM_ITS ---
Providers/Reason For Consult 2 Consulting Physician/Specialty*: Dr. Chucky Shelley, DO/General Surgery Reason for Consult*: Right inguinal hernia Attending Physician: Mihir Ahmadi MD History of Present Illness History of Present Illness Vinh Fuentes is a 53 year old male who presented to the hospital in acute alcohol withdrawal and delirium tremens, who was found to have a large incarcerated right inguinal hernia. Patient is alert to person but not to time right now. HPI and review of systems are limited secondary to this. He tells me that this hernia has been present since he was a kid. It causes him some pain at times with movement but usually is asymptomatic. CT showed that it was incarcerated with fat only. No bowel obstruction. Denies any abdominal pain Review of Systems 2 General: Reports: ROS unobtainable due to mental status Medications/Allergies Home Medications Medication Instructions Recorded Confirmed Last Taken Type No Known Home Medications 05/28/20 10/09/23 Unknown History Allergies Allergy/AdvReac Type Severity Reaction Status Date / Time No Known Allergies Allergy Verified 05/28/20 16:30 Current Medications Generic Name Dose Route Start Last Admin Trade Name Freq PRN Reason Stop Dose Admin Albuterol Sulfate 2.5 mg 10/09/23 17:39 10/11/23 13:54 Albuterol 2.5 Mg/3 Ml Neb INHALATION 2.5 mg Q4H.RESPIRATORY PRN Administration SHORTNESS OF BREATH Betamethasone/Clotrimazole 1 applic 10/09/23 21:00 10/11/23 20:56 Clotrimazole-Betamethasone Cream 15gm TOPICAL 1 applic TID JOAN Administration Ceftriaxone Sodium 1,000 mg 10/10/23 10:00 10/11/23 10:45 Ceftriaxone 1,000 Mg Sdv IVP 1,000 mg Q24H JOAN Administration Protocol Folic Acid 1 mg 10/09/23 14:29 10/11/23 08:46 Folic Acid 1 Mg Tablet PO 1 mg DAILY JOAN Administration Azithromycin 500 mg/ Sodium 250 mls @ 250 mls/hr 10/10/23 11:00 10/11/23 11:49 Chloride IV Infused Q24H JOAN Infusion Protocol Metronidazole 500 mg in 100 mls @ 100 mls/hr 10/09/23 17:15 10/12/23 02:00 Flagyl Iv IV Infused Q8H JOAN Infusion Protocol Potassium Chloride/Dextrose/Sod Cl 20 meq in 1,000 mls @ 100 mls/hr 10/10/23 02:30 10/12/23 02:56 D5-Ns 0.45% + Kcl 20 Meq IV 100 mls/hr .Q10H JOAN Administration Dexmedetomidine/Sodium Chloride 400 mcg in 100 mls @ 0 mls/hr 10/10/23 10:30 10/12/23 03:37 Precedex IV 0 mcg/kg/hr .Q0M JOAN 0 mls/hr Titration Protocol Per Protocol Insulin Human Lispro 0 unit 10/10/23 07:00 10/11/23 21:24 Insulin Lispro 100 Unit/1 Ml SUBCUT Not Given AC&BEDTIME JOAN Protocol Lorazepam 6 mg 10/09/23 17:09 10/10/23 12:21 Lorazepam 2 Mg Tablet PO 6 mg Q4H PRN Administration WITHDRAWAL Protocol Magnesium Oxide 400 mg 10/09/23 18:00 10/11/23 17:55 Magnesium Oxide 400 Mg Tablet PO 400 mg BID JOAN Administration Multivitamins Therapeutic 1 tab 10/10/23 09:00 10/11/23 08:46 Multivitamin Therapeutic Tablet PO 1 tab DAILY JOAN Administration Nicotine 1 patch 10/09/23 17:16 10/10/23 06:27 Nicotine 21 Mg Patch TRANSDERMA 1 patch DAILY PRN Administration nicotine withdrawl Pantoprazole Sodium 40 mg 10/09/23 14:29 10/11/23 08:46 Pantoprazole 40 Mg Sdv IVP 40 mg DAILY JOAN Administration Phenobarbital 64.8 mg 10/11/23 09:00 10/11/23 17:55 Phenobarbital 32.4 Mg Tablet PO 64.8 mg BID JOAN Administration Sodium Chloride 5 - 10 ml 10/09/23 18:15 10/12/23 05:20 Sodium Chloride 0.9 % (Flush) Syringe 10 Ml IV 10 ml Q12H JOAN Administration Thiamine Mononitrate 100 mg 10/10/23 09:00 10/11/23 08:46 Thiamine 100 Mg Tablet PO 100 mg DAILY JOAN Administration PFSH Acute 2 PFSH: Medical History History of pancreatitis 09/2023 History of right inguinal hernia Alcohol dependence History of CVA (cerebrovascular accident) 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 Surgical History No significant past surgical history Social History Smoking and tobacco/nicotine status: current every day tobacco/nicotine user Alcohol intake: current Alcohol type: beer and hard liquor Alcohol use comment: daily (~12 shots liquor and 6 beers per day) Substance/Drug Use: current Other substance/drug use details: rare thc Additional social history: Son Sg Fuentes, Brother Tony Fuentes Household members: none Housing: Other Details: motel Vitals/I&O/Wt Last Vital Signs Temp 98.0 F 10/12/23 04:00 Pulse 101 H 10/12/23 06:00 Resp 23 H 10/12/23 06:00 BP 144/104 10/12/23 06:00 Pulse Ox 93 10/12/23 06:00 O2 Del Method Nasal Cannula 10/12/23 06:00 O2 Flow Rate 2 10/12/23 06:00 10/11/23 10/11/23 10/12/23 14:59 22:59 06:59 Intake Total 908.661 / 807.293 0545.897 / 2249.558 1106.300 / 3355.858 Output Total 550 / 550 450 / 1000 Balance 908.661 / 908.661 790.897 / 1699.558 656.300 / 2355.858 Weight last 48 hrs Weight 209 lb 7.04 oz Weight 210 lb 8.663 oz Physical Exam 2 Narrative: General : Patient is well developed , no acute distress, oriented to self only Head : Normal cephalic, a-traumatic. Ears : Pinnae and external canal are normal. Hearing is normal. Eyes : PERRLA, Sclera and injection are normal. No conjunctival discharge. Nose : Mucous membranes are without erythema. Throat : buccal mucosa is normal, gums are without significant recession or hypertrophy. Lungs : Equal chest rise bilaterally, no use of accessory muscles, trachea is midline. Cor : Rate and rhythm are normal. Abdomen : Soft, ND, NT, no g/r, large incarcerated right inguinal hernia containing fat only Extremities : No edema, no cyanosis or clubbing, dorsalis pedis pulses are present bilaterally, non-tender to palpation of calves. Upper extremities are normal bilaterally. Back : non-tender to palpation, no CVA tenderness. Neuro : CN II - XII intact, Upper and lower extremities have equal and full strength Urinary Catheter Management: Clarke: Cath Placed During This Visit: yes Reason for Continuing Indwelling Catheter: Accurate Measurement of Urinary Output in Critically Ill Patients Urinary Catheter Date of Insertion: 10/09/23 Urinary Catheter Time of Insertion: 18:15 Data 10/12/23 03:35 10/12/23 03:35 A&P Assessment and plan (1) Incarcerated right inguinal hernia: Plan Concerning his chronic and has no need to be fixed acutely. Has been present for decades No acute surgical intervention GERD follow-up as an open Medical neck for hospitalist Coding Level of Care Code 39669 Diagnoses Incarcerated right inguinal hernia K40.30
[2023-10-11 17:53] LABS: Glucose Point of Care 160 mg/dL (70-110)
[2023-10-11] MEDS: insulin lispro 100 unit/1 mL SUBCUT (17:55)
[2023-10-11 20:56] LABS: Glucose Point of Care 95 mg/dL (70-110)
[2023-10-12] VITALS (33 sets, daily range): BP systolic 99–158; BP diastolic 76–117; PULSE 85–149; RESP 20–30; TEMP 36.7–37; O2SAT 90–98
[2023-10-12] MEDS: metroNIDAZOLE IV 500 MG/100 ML PREMIX 100 MG IV ×2 (00:58→08:01)
[2023-10-12] MEDS: D5-NS 0.45% + KCL 20 mEq 20 MEQ/1,000 ML BAG 100 MEQ IV (02:56)
[2023-10-12 04:00] LABS: Basophils % 0.1 %; Eosinophils # 0.1 10^3/uL (0.0-0.8); Eosinophils % 1.3 %; Hematocrit 34.7 % (37-53); Lymphocytes # 0.7 10^3/uL (0.8-4.8); Lymphocytes % 9.5 %; Mean Corpuscular HGB Conc 33.4 g/dL (30-55); Mean Corpuscular Hemoglobin 35.6 pg (27-33); Mean Corpuscular Volume 106.4 fl (82-101); Mean Platelet Volume 10.4 fL (7.4-10.4); Monocytes # 0.7 10^3/uL (0.2-0.9); Monocytes % 9.9 %; Neutrophils # 5.53 10^3/uL (1.8-7.7); Neutrophils % 78.5 %; Nucleated Red Blood Cells % 0 %; Platelet Count 92 10^3/cmm (157-399); Red Blood Count 3.26 10^6/uL (3.85-5.65); Red Cell Distribution Width 13.2 % (12.1-15.1); White Blood Count 7.05 10^3/uL (3.29-11.43)
[2023-10-12 04:12] LABS: INR 1.25 (0.8-1.2)
[2023-10-12 04:18] LABS: Alanine Aminotransferase 54 U/L (0-41); Albumin Level 2.5 g/dL (3.5-5.2); Alkaline Phosphatase 100 U/L (40-130); Anion Gap 11.7 (5-19); Aspartate Amino Transferase 62 U/L (0-40); Blood Urea Nitrogen 4 mg/dL (6-20); C Reactive Protein 83.9 mg/L (0.0-4.9); Calcium 7.5 mg/dL (8.5-10.5); Carbon Dioxide 25 mmol/L (22-29); Chloride 102 mmol/L (98-107); Creatinine Clr Calc Pharmacy 182.7022; Globulin 2.6 g/dL (1.3-4.6); Glomerular Filtration Rate 173.3 mL/min (90-130); Glucose 96 mg/dL (65-115); Magnesium 2.1 mg/dL (1.7-2.3); Osmolality Calculated 277 mOsm/kg (285-295); Phosphorus 2.7 mg/dL (2.5-4.5); Potassium 3.7 mmol/L (3.5-5.1); Sodium 135 mmol/L (136-145); Total Bilirubin 0.5 mg/dL (0.15-1.2); Total Protein 5.1 g/dL (6.6-8.7)
[2023-10-12 04:22] LABS: NT Pro B Type Natriuretic Pept 289 pg/mL (0-125); Procalcitonin 0.37 ng/mL (0-0.5)
[2023-10-12] MEDS: sodium chloride 0.9 % (flush) syringe 10 mL IV (05:20)
[2023-10-12 07:51] LABS: Glucose Point of Care 84 mg/dL (70-110)
[2023-10-12] MEDS: albuterol 2.5 mg/3 mL Neb INHALATION (07:53)
[2023-10-12] MEDS: magnesium oxide 400 mg tablet PO ×2 (08:00→18:21)
[2023-10-12] MEDS: pantoprazole 40 mg SDV IVP (08:00)
[2023-10-12] MEDS: multivitamin therapeutic Tablet 1 TAB PO (08:01)
[2023-10-12] MEDS: thiamine 100 mg Tablet PO (08:01)
[2023-10-12] MEDS: PHENobarbital 32.4 mg Tablet 64.8 MG PO (08:01)
[2023-10-12] MEDS: folic acid 1 mg Tablet PO (08:01)
[2023-10-12] MEDS: clotrimazole-betamethasone cream 15gm 1 APPLIC TOPICAL ×2 (08:02→20:57)
[2023-10-12] MEDS: cefTRIAXone 1,000 mg SDV 1000 MG IVP (10:40)
[2023-10-12 11:51] LABS: Glucose Point of Care 82 mg/dL (70-110)
[2023-10-12] MEDS: azithromycin 500 MG in sodium chloride 0.9% 250 ML 250 MG IV (12:04)
--- NOTE | 2023-10-12 12:20 | P.PN_ITS ---
Subjective 2 Subjective: Patient was seen this morning he is alert to person, place, not to time, still having episodes of confusion, he is seen with physical therapy, getting up he is a two-person assist, has generalized weakness, significant deconditioning, he can follow commands, but at times easily becomes confused, afebrile overnight, normotensive, heart rates do increase to the 130s, with exertion, is on 3 L Vitals/I&O/Wt Last Vital Signs Temp 98.0 F 10/12/23 04:00 Pulse 100 10/12/23 12:00 Resp 20 H 10/12/23 12:00 BP 108/81 10/12/23 12:00 Pulse Ox 94 10/12/23 12:00 O2 Del Method Nasal Cannula 10/12/23 12:00 O2 Flow Rate 3 10/12/23 12:00 10/11/23 10/12/23 10/12/23 22:59 06:59 14:59 Intake Total 1340.897 / 2249.558 1106.300 / 3355.858 460 / 460 Output Total 550 / 550 450 / 1000 Balance 790.897 / 1699.558 656.300 / 2355.858 460 / 460 Weight last 48 hrs Weight 95 kg Weight 95.5 kg Physical Exam 2 Const: COMMON NORMALS: no acute distress EXAM LIMITATIONS: altered mental status ORIENTATION/CONSCIOUSNESS: Yes awake, Yes oriented to person, Yes oriented to place and Yes confused; not oriented to time Resp: COMMON NORMALS: normal respiratory effort, No retractions, No use of accessory muscles and clear to auscultation bilaterally AUSCULTATION: clear to auscultation bilaterally Cardio: COMMON NORMALS: regular rate, regular rhythm, S1 normal heart sound present and S2 normal heart sound present RATE: regular rate RHYTHM: r egular rhythm HEART SOUNDS: S1 normal heart sound present and S2 normal heart sound present GI: COMMON NORMALS: Normal to inspection, nondistended, normoactive bowel sounds present and non-tender Extremity: COMMON NORMALS: no pedal edema Neuro: SENSORIUM/ORIENTATION: Yes oriented to person, Yes oriented to place and No oriented to time Psych: COMMON NORMALS: mental status grossly normal Urinary Catheter Management: Clarke: Cath Placed During This Visit: yes Reason for Continuing Indwelling Catheter: Accurate Measurement of Urinary Output in Critically Ill Patients Urinary Catheter Date of Insertion: 10/09/23 Urinary Catheter Time of Insertion: 18:15 Data 10/12/23 03:35 10/12/23 03:35 A&P Assessment and plan (1) Pneumonia: Organism unknown, present on admission with patchy tree-in-bud opacities with subsegmental atelectasis noted on CTA of the chest and complaints of increasing shortness of breath noted by ER. With right sided features aspiration pneumonia is within differential. Does have a slight left shift. Not lymphopenic. COVID antigen negative. -De-escalate antibiotics to Augmentin Qualifiers: Laterality: right Lung location: upper lobe of lung (2) Alcohol dependence with withdrawal: Alcoholic with daily drinking per limited information available. Has not been drinking as much for a few days and presents with acute withdrawal with delirium. No seizures thus far. Has required high-dose benzodiazepines thus far. Has associated significant tachycardia and hypertension. Additionally has elevated liver enzymes and low platelets. -On tapering dose of phenobarbital -continue precedex Qualifiers: Complication of substance-induced condition: with delirium Qualified Code(s): F10.231 - Alcohol dependence with withdrawal delirium (3) High anion gap metabolic acidosis: Resolved Serum ketones negative. Not known to be diabetic. Lactic acid is elevated. Could be from alcohol. No available information suggesting methanol, ethylene glycol or isopropyl alcohol ingestion but it is certainly within the differential as or other toxins. Urine drug screen is ordered, positivr for benzodiazepines. No report of GI losses. Renal function currently normal. (4) Elevated troponin: Negative 2-hour tropoinin delta. EKG with nonspecific changes. Could be type II process from tachycardia and significant hypertension present on admission. (5) Thrombocytopenia: Platelet count 69k Currently suspect secondary to alcohol use (6) Elevated liver enzymes: Elevated total bilirubin, AST and ALT at presentation 1.6, 90 and 94 respectively. Alkaline phosphatase is normal. No baselines for comparison. Chronic alcohol use, other hepatotoxicity, hepatic congestion, infection, inflammation all within differential. (7) Elevated d-dimer: D-dimer at presentation 8. CTA of the chest no evidence of PE. (8) Scrotal anomaly: looks like hernia, will monitor 2. Large, fat containing right inguinal hernia with associated edema and stranding in the hernia sac, possibly secondary to fat incarceration. (9) Severe sepsis: Resolved Severe sepsis (by SEP-1 criteria) from infection is within differential of overall presentation at this point in time though I strongly suspect majority of abnormalities suggesting severe sepsis are secondary to alcohol use and its aftereffects in the setting of acute withdrawal. Potential sources of infection include pulmonary and genitourinary/GI with scrotal abnormally noted. Other potential sources of infection not currently evident should also be considered. Patient has had fever, tachycardia, tachypnea, left shift without elevation in wbc, lactic acidosis, elevated liver enzymes, elevated D-dimer, elevated tropoin, low platelets, mental status change but not hypotension. Is status post 3 liters fluid in ED and has been started on antibiotics. Coutinue IV abx, fluids (10) Nicotine dependence, cigarettes, uncomplicated: Not known to have a history of COPD or asthma though it is certainly possibility, current information limited. (11) Delirium tremens: - Resolving, on tapering dose of phenobarbital (12) Acute pancreatitis: ? IV fluids -IV fluids -Position to Augmentin (13) Physical deconditioning: PT OT (14) Muscle weakness (generalized): PT OT, speech therapy eval (15) Wernickes encephalopathy: Continue B12, folate, thiamine ? PT OT (16) Acute encephalopathy: ? Second to Warnicke's encephalopathy -Second alcohol withdrawal ? Neurochecks ? Aspiration precautions Plan VTE prophylaxis: SCD, no pharmacological DVT prophylaxis due to low platelets GI Prophylaxis: PPI Antibiotics: Augmentin Pending studies: blood cultures, covid testing Telemetry: ordered Clarke: ordered Line(s): peripheral IVs Studies to date during hospital stay include: chest x-ray, CTA of the chest and pending scrotal ultrasound Disposition plan: depends on clinical course Code Status: Full Code Supportive care otherwise Need to see if we can locate family to get more prior history and update them on current condition Plan for today PT OT, wean antibiotics, taper phenobarbital, de-escalate antibiotic therapy, monitor mentation Attestations 2 Medical Necessity Statement*: Patient requires hospitalization, for acute encephalopathy likely a combination of alcohol withdrawal, delirium tremens, Warnicke's encephalopathy, prolonged hospitalization, pneumonia, Diagnoses Pneumonia J18.9 Laterality: right Lung location: upper lobe of lung Alcohol dependence with withdrawal delirium F10.231 Complication of substance-induced condition: with delirium High anion gap metabolic acidosis E87.29 Elevated troponin R79.89 Thrombocytopenia D69.6 Elevated liver enzymes R74.8 Elevated d-dimer R79.89 Scrotal anomaly Q55.20 Severe sepsis A41.9; R65.20 Nicotine dependence, cigarettes, uncomplicated F17.210 Delirium tremens F10.931 Acute pancreatitis K85.90 Physical deconditioning R53.81 Muscle weakness (generalized) M62.81 Wernickes encephalopathy E51.2 Acute encephalopathy G93.40
[2023-10-12] MEDS: dexmedeTOMIDine 0.9 % NaCL 400 MCG/100 ML PREMIX IV (14:49)
[2023-10-12 18:06] LABS: Glucose Point of Care 83 mg/dL (70-110)
[2023-10-12] MEDS: PHENobarbital 32.4 mg Tablet PO (18:21)
[2023-10-12] MEDS: amoxicillin-clav 875-125 mg Tablet 1 TAB PO (18:21)
[2023-10-12 20:56] LABS: Glucose Point of Care 87 mg/dL (70-110)
[2023-10-12] MEDS: D5-NS 0.45% + KCL 20 mEq 20 MEQ/1,000 ML BAG 50 MEQ IV (22:56)
[2023-10-13] VITALS (14 sets, daily range): BP systolic 124–179; BP diastolic 89–109; PULSE 83–126; RESP 16–29; TEMP 36.4–36.8; O2SAT 89–96
[2023-10-13 03:51] LABS: Basophils % 0.3 %; Eosinophils # 0.1 10^3/uL (0.0-0.8); Eosinophils % 1.6 %; Hematocrit 33.9 % (37-53); Lymphocytes # 0.7 10^3/uL (0.8-4.8); Mean Corpuscular HGB Conc 34.2 g/dL (30-55); Mean Corpuscular Hemoglobin 35.9 pg (27-33); Mean Platelet Volume 9.9 fL (7.4-10.4); Monocytes # 0.9 10^3/uL (0.2-0.9); Neutrophils # 5.77 10^3/uL (1.8-7.7); Neutrophils % 76.3 %; Nucleated Red Blood Cells % 0 %; Platelet Count 101 10^3/cmm (157-399); Red Blood Count 3.23 10^6/uL (3.85-5.65); Red Cell Distribution Width 13.1 % (12.1-15.1); White Blood Count 7.56 10^3/uL (3.29-11.43)
[2023-10-13 04:14] LABS: Alanine Aminotransferase 46 U/L (0-41); Albumin Level 2.4 g/dL (3.5-5.2); Alkaline Phosphatase 82 U/L (40-130); Anion Gap 13.1 (5-19); Aspartate Amino Transferase 62 U/L (0-40); Blood Urea Nitrogen 4 mg/dL (6-20); C Reactive Protein 60.8 mg/L (0.0-4.9); Calcium 7.6 mg/dL (8.5-10.5); Carbon Dioxide 24 mmol/L (22-29); Chloride 100 mmol/L (98-107); Creatinine Clr Calc Pharmacy 182.2244; Globulin 2.8 g/dL (1.3-4.6); Glomerular Filtration Rate 173.3 mL/min (90-130); Glucose 79 mg/dL (65-115); Magnesium 1.9 mg/dL (1.7-2.3); Osmolality Calculated 274 mOsm/kg (285-295); Phosphorus 2.7 mg/dL (2.5-4.5); Potassium 3.1 mmol/L (3.5-5.1); Sodium 134 mmol/L (136-145); Total Bilirubin 0.6 mg/dL (0.15-1.2); Total Protein 5.2 g/dL (6.6-8.7)
[2023-10-13 04:19] LABS: Procalcitonin 0.32 ng/mL (0-0.5)
[2023-10-13] MEDS: sodium chloride 0.9 % (flush) syringe 10 mL IV ×2 (05:29→17:03)
[2023-10-13 07:38] LABS: Glucose Point of Care 89 mg/dL (70-110)
--- NOTE | 2023-10-13 08:30 | PC.NURSE ---
assisted up to [facility] loose liquid green diarrhea noted linen change done and partial bath remains very weak up with asist of 2
[2023-10-13] MEDS: magnesium oxide 400 mg tablet PO ×2 (08:45→17:02)
[2023-10-13] MEDS: PHENobarbital 32.4 mg Tablet PO ×2 (08:45→17:02)
[2023-10-13] MEDS: amoxicillin-clav 875-125 mg Tablet 1 TAB PO ×2 (08:45→17:02)
[2023-10-13] MEDS: folic acid 1 mg Tablet PO (08:46)
[2023-10-13] MEDS: pantoprazole 40 mg SDV IVP (08:46)
[2023-10-13] MEDS: cyanocobalamin 1,000 mcg Tablet 1000 MCG PO (08:46)
[2023-10-13] MEDS: multivitamin therapeutic Tablet 1 TAB PO (08:46)
[2023-10-13] MEDS: thiamine 100 mg Tablet PO (08:57)
[2023-10-13] MEDS: clotrimazole-betamethasone cream 15gm 1 APPLIC TOPICAL ×3 (08:57→21:37)
[2023-10-13] MEDS: potassium chloride ER 20 mEq Tablet 40 MEQ PO (08:59)
[2023-10-13] MEDS: albuterol 2.5 mg/3 mL Neb INHALATION (09:20)
--- NOTE | 2023-10-13 09:59 | PC.NURSE ---
report given and transfered to room 260
[2023-10-13 11:37] LABS: Glucose Point of Care 102 mg/dL (70-110)
--- NOTE | 2023-10-13 13:01 | P.PN_ITS ---
Subjective 2 Subjective: Patient was seen this morning, he sitting up in a chair, enjoying breakfast, denies any fevers, chills, no nausea, no vomiting, does report significant bilateral extremity weakness Vitals/I&O/Wt Last Vital Signs Temp 97.8 F 10/13/23 11:52 Pulse 109 H 10/13/23 11:52 Resp 16 10/13/23 11:52 BP 139/94 10/13/23 11:52 Pulse Ox 92 10/13/23 11:52 O2 Del Method Nasal Cannula 10/13/23 11:52 O2 Flow Rate 1 10/13/23 10:13 10/12/23 10/13/23 10/13/23 22:59 06:59 14:59 Intake Total / 1987.492 650.733 / 650.733 Output Total 1200 / 1200 950 / 2150 Balance -1170 / 788.492 -950 / -161.508 650.733 / 650.733 Weight last 48 hrs Weight 98 kg Weight 95 kg Physical Exam 2 Const: COMMON NORMALS: no acute distress and patient oriented x3 Resp: COMMON NORMALS: normal respiratory effort, No retractions, No use of accessory muscles and clear to auscultation bilaterally AUSCULTATION: clear to auscultation bilaterally Cardio: COMMON NORMALS: regular rate, regular rhythm, S1 normal heart sound present and S2 normal heart sound present RATE: regular rate RHYTHM: r egular rhythm HEART SOUNDS: S1 normal heart sound present and S2 normal heart sound present GI: COMMON NORMALS: Normal to inspection, nondistended, normoactive bowel sounds present and non-tender Extremity: COMMON NORMALS: no pedal edema Neuro: COMMON NORMALS: patient oriented x3 and CN's II-XII intact bilaterally Psych: COMMON NORMALS: mental status grossly normal Urinary Catheter Management: Clarke: Cath Placed During This Visit: yes Reason for Continuing Indwelling Catheter: Accurate Measurement of Urinary Output in Critically Ill Patients Urinary Catheter Date of Insertion: 10/09/23 Urinary Catheter Time of Insertion: 18:15 Data 10/13/23 03:07 10/13/23 03:07 A&P Assessment and plan (1) Pneumonia: -Clinically improving -De-escalate antibiotics to Augmentin Qualifiers: Laterality: right Lung location: upper lobe of lung (2) Alcohol dependence with withdrawal: -On tapering dose of phenobarbital Qualifiers: Complication of substance-induced condition: with delirium Qualified Code(s): F10.231 - Alcohol dependence with withdrawal delirium (3) High anion gap metabolic acidosis: Resolved (4) Elevated troponin: Negative 2-hour tropoinin delta. EKG with nonspecific changes. Could be type II process from tachycardia and significant hypertension present on admission. (5) Thrombocytopenia: 101, currently suspect secondary to alcohol use (6) Elevated liver enzymes: Monitor (7) Elevated d-dimer: D-dimer at presentation 8. CTA of the chest no evidence of PE. (8) Scrotal anomaly: looks like hernia, will monitor 2. Large, fat containing right inguinal hernia with associated edema and stranding in the hernia sac, possibly secondary to fat incarceration. (9) Severe sepsis: Resolved Severe sepsis (by SEP-1 criteria) from infection is within differential of overall presentation at this point in time though I strongly suspect majority of abnormalities suggesting severe sepsis are secondary to alcohol use and its aftereffects in the setting of acute withdrawal. Potential sources of infection include pulmonary and genitourinary/GI with scrotal abnormally noted. Other potential sources of infection not currently evident should also be considered. Patient has had fever, tachycardia, tachypnea, left shift without elevation in wbc, lactic acidosis, elevated liver enzymes, elevated D-dimer, elevated tropoin, low platelets, mental status change but not hypotension. Is status post 3 liters fluid in ED and has been started on antibiotics. Coutinue IV abx, fluids (10) Nicotine dependence, cigarettes, uncomplicated: Not known to have a history of COPD or asthma though it is certainly possibility, current information limited. (11) Delirium tremens: - Resolving, on tapering dose of phenobarbital (12) Acute pancreatitis: -Resolving -Position to Augmentin (13) Physical deconditioning: PT OT (14) Muscle weakness (generalized): PT OT, speech therapy eval (15) Wernickes encephalopathy: Continue B12, folate, thiamine ? PT OT (16) Acute encephalopathy: ? Second to Warnicke's encephalopathy -Second alcohol withdrawal ? Neurochecks ? Aspiration precautions Plan VTE prophylaxis: SCD, no pharmacological DVT prophylaxis due to low platelets GI Prophylaxis: PPI Antibiotics: Augmentin Pending studies: blood cultures, covid testing Telemetry: ordered Clarke: ordered Line(s): peripheral IVs Studies to date during hospital stay include: chest x-ray, CTA of the chest and pending scrotal ultrasound Disposition plan: depends on clinical course Code Status: Full Code Supportive care otherwise Need to see if we can locate family to get more prior history and update them on current condition Plan for today PT OT, wean antibiotics, taper phenobarbital, de-escalate antibiotic therapy, monitor mentation, moved to medical floors Attestations 2 Medical Necessity Statement*: Patient requires hospitalization for deconditioning, muscle weakness, Warnicke's encephalopathy, alcohol withdrawal Diagnoses Pneumonia J18.9 Laterality: right Lung location: upper lobe of lung Alcohol dependence with withdrawal delirium F10.231 Complication of substance-induced condition: with delirium High anion gap metabolic acidosis E87.29 Elevated troponin R79.89 Thrombocytopenia D69.6 Elevated liver enzymes R74.8 Elevated d-dimer R79.89 Scrotal anomaly Q55.20 Severe sepsis A41.9; R65.20 Nicotine dependence, cigarettes, uncomplicated F17.210 Delirium tremens F10.931 Acute pancreatitis K85.90 Physical deconditioning R53.81 Muscle weakness (generalized) M62.81 Wernickes encephalopathy E51.2 Acute encephalopathy G93.40
[2023-10-13 16:21] LABS: Glucose Point of Care 89 mg/dL (70-110)
[2023-10-13 20:59] LABS: Glucose Point of Care 98 mg/dL (70-110)
[2023-10-13 23:19] LABS: C.Diff PCR (Lab) NEGATIVE (Negative)
[2023-10-14] VITALS (10 sets, daily range): BP systolic 160–180; BP diastolic 89–108; PULSE 96–121; RESP 18–19; TEMP 36.6–36.9; O2SAT 92–96; BMI 33.4
[2023-10-14] MEDS: hyDRALAzine 25 mg Tablet PO (00:13)
[2023-10-14] MEDS: hyDRALAzine 20 mg/mL INJ 1 mL 10 MG IVP ×3 (05:04→22:27)
[2023-10-14] MEDS: sodium chloride 0.9 % (flush) syringe 10 mL IV ×2 (06:09→17:16)
[2023-10-14 06:40] LABS: Glucose Point of Care 80 mg/dL (70-110)
[2023-10-14] MEDS: pantoprazole 40 mg SDV IVP (08:31)
[2023-10-14] MEDS: clotrimazole-betamethasone cream 15gm 1 APPLIC TOPICAL ×2 (08:31→14:18)
[2023-10-14] MEDS: PHENobarbital 32.4 mg Tablet PO (08:32)
[2023-10-14] MEDS: amoxicillin-clav 875-125 mg Tablet 1 TAB PO ×2 (08:32→17:13)
[2023-10-14] MEDS: magnesium oxide 400 mg tablet PO ×2 (08:32→17:13)
[2023-10-14] MEDS: thiamine 100 mg Tablet PO (08:32)
[2023-10-14] MEDS: cyanocobalamin 1,000 mcg Tablet 1000 MCG PO (08:32)
[2023-10-14] MEDS: multivitamin therapeutic Tablet 1 TAB PO (08:32)
[2023-10-14] MEDS: folic acid 1 mg Tablet PO (08:32)
[2023-10-14] MEDS: amlodipine 10 mg Tablet PO (09:37)
[2023-10-14 10:59] LABS: Basophils % 0.3 %; Eosinophils # 0.1 10^3/uL (0.0-0.8); Hematocrit 37.1 % (37-53); Lymphocytes # 0.9 10^3/uL (0.8-4.8); Lymphocytes % 12.3 %; Mean Corpuscular HGB Conc 34.2 g/dL (30-55); Mean Corpuscular Hemoglobin 36.5 pg (27-33); Mean Corpuscular Volume 106.6 fl (82-101); Mean Platelet Volume 9.8 fL (7.4-10.4); Neutrophils # 5.56 10^3/uL (1.8-7.7); Neutrophils % 72.5 %; Nucleated Red Blood Cells % 0 %; Platelet Count 159 10^3/cmm (157-399); Red Blood Count 3.48 10^6/uL (3.85-5.65); Red Cell Distribution Width 13.3 % (12.1-15.1); White Blood Count 7.67 10^3/uL (3.29-11.43)
[2023-10-14 11:20] LABS: Alanine Aminotransferase 62 U/L (0-41); Albumin Level 2.7 g/dL (3.5-5.2); Alkaline Phosphatase 90 U/L (40-130); Anion Gap 19.6 (5-19); Aspartate Amino Transferase 110 U/L (0-40); Blood Urea Nitrogen 4 mg/dL (6-20); Calcium 7.9 mg/dL (8.5-10.5); Carbon Dioxide 19 mmol/L (22-29); Chloride 97 mmol/L (98-107); Globulin 3.4 g/dL (1.3-4.6); Glomerular Filtration Rate 173.3 mL/min (90-130); Glucose 85 mg/dL (65-115); Osmolality Calculated 270 mOsm/kg (285-295); Potassium 3.6 mmol/L (3.5-5.1); Sodium 132 mmol/L (136-145); Total Bilirubin 0.6 mg/dL (0.15-1.2); Total Protein 6.1 g/dL (6.6-8.7)
[2023-10-14 11:21] LABS: Creatinine Clr Calc Pharmacy 181.1676
[2023-10-14 11:45] LABS: Glucose Point of Care 77 mg/dL (70-110)
--- NOTE | 2023-10-14 15:16 | P.PN_ITS ---
Subjective 2 Subjective: Patient was seen this morning, he continues to complain of generalized weakness, denies any fevers, no chills, no nausea, no vomiting, no lightheadedness, dizziness Vitals/I&O/Wt Last Vital Signs Temp 97.8 F 10/14/23 12:00 Pulse 121 H 10/14/23 14:22 Resp 18 10/14/23 12:00 BP 180/98 10/14/23 12:00 Pulse Ox 96 10/14/23 12:00 O2 Del Method Nasal Cannula 10/14/23 12:00 O2 Flow Rate 1 10/13/23 10:13 10/14/23 10/14/23 10/14/23 06:59 14:59 22:59 Intake Total 600 / 600 Output Total 600 / 600 Balance -600 / 290.733 600 / 600 Weight last 48 hrs Weight 93.894 kg Weight 94.71 kg Weight 98 kg Physical Exam 2 Const: COMMON NORMALS: no acute distress and patient oriented x3 Resp: COMMON NORMALS: normal respiratory effort, No retractions, No use of accessory muscles and clear to auscultation bilaterally AUSCULTATION: clear to auscultation bilaterally Cardio: COMMON NORMALS: regular rate, regular rhythm, S1 normal heart sound present and S2 normal heart sound present RATE: regular rate RHYTHM: r egular rhythm HEART SOUNDS: S1 normal heart sound present and S2 normal heart sound present GI: COMMON NORMALS: Normal to inspection, nondistended, normoactive bowel sounds present and non-tender Extremity: COMMON NORMALS: no pedal edema Neuro: COMMON NORMALS: patient oriented x3 Psych: COMMON NORMALS: mental status grossly normal Urinary Catheter Management: Clarke: Cath Placed During This Visit: yes Reason for Continuing Indwelling Catheter: Accurate Measurement of Urinary Output in Critically Ill Patients Urinary Catheter Date of Insertion: 10/09/23 Urinary Catheter Time of Insertion: 18:15 Data 10/14/23 10:39 10/14/23 10:39 Micro: Microbiology 10/09/23 11:16 Blood Culture - Final Blood NO GROWTH AFTER 5 DAYS 10/09/23 10:30 Blood Culture - Final Blood NO GROWTH AFTER 5 DAYS A&P Assessment and plan (1) Pneumonia: -Clinically improving -De-escalate antibiotics to Augmentin Qualifiers: Laterality: right Lung location: upper lobe of lung (2) Alcohol dependence with withdrawal: -On tapering dose of phenobarbital Qualifiers: Complication of substance-induced condition: with delirium Qualified Code(s): F10.231 - Alcohol dependence with withdrawal delirium (3) High anion gap metabolic acidosis: Resolved (4) Elevated troponin: Negative 2-hour tropoinin delta. EKG with nonspecific changes. Could be type II process from tachycardia and significant hypertension present on admission. (5) Thrombocytopenia: 101, currently suspect secondary to alcohol use (6) Elevated liver enzymes: Monitor (7) Elevated d-dimer: D-dimer at presentation 8. CTA of the chest no evidence of PE. (8) Scrotal anomaly: looks like hernia, will monitor 2. Large, fat containing right inguinal hernia with associated edema and stranding in the hernia sac, possibly secondary to fat incarceration. (9) Severe sepsis: Resolved Severe sepsis (by SEP-1 criteria) from infection is within differential of overall presentation at this point in time though I strongly suspect majority of abnormalities suggesting severe sepsis are secondary to alcohol use and its aftereffects in the setting of acute withdrawal. Potential sources of infection include pulmonary and genitourinary/GI with scrotal abnormally noted. Other potential sources of infection not currently evident should also be considered. Patient has had fever, tachycardia, tachypnea, left shift without elevation in wbc, lactic acidosis, elevated liver enzymes, elevated D-dimer, elevated tropoin, low platelets, mental status change but not hypotension. Is status post 3 liters fluid in ED and has been started on antibiotics. Coutinue IV abx, fluids (10) Nicotine dependence, cigarettes, uncomplicated: Not known to have a history of COPD or asthma though it is certainly possibility, current information limited. (11) Delirium tremens: - Resolving, on tapering dose of phenobarbital (12) Acute pancreatitis: -Resolving -Position to Augmentin (13) Physical deconditioning: PT OT (14) Muscle weakness (generalized): PT OT, speech therapy eval (15) Wernickes encephalopathy: Continue B12, folate, thiamine ? PT OT (16) Acute encephalopathy: ? Second to Warnicke's encephalopathy -Second alcohol withdrawal ? Neurochecks ? Aspiration precautions Plan VTE prophylaxis: SCD, no pharmacological DVT prophylaxis due to low platelets GI Prophylaxis: PPI Antibiotics: Augmentin Pending studies: blood cultures, covid testing Telemetry: ordered Clarke: ordered Disposition plan: depends on clinical course Code Status: Full Code Supportive care otherwise Need to see if we can locate family to get more prior history and update them on current condition Plan for today monitor clinical status Attestations 2 Medical Necessity Statement*: patient requires hospitalization for alcohol withdrawal, deconditioning Diagnoses Pneumonia J18.9 Laterality: right Lung location: upper lobe of lung Alcohol dependence with withdrawal delirium F10.231 Complication of substance-induced condition: with delirium High anion gap metabolic acidosis E87.29 Elevated troponin R79.89 Thrombocytopenia D69.6 Elevated liver enzymes R74.8 Elevated d-dimer R79.89 Scrotal anomaly Q55.20 Severe sepsis A41.9; R65.20 Nicotine dependence, cigarettes, uncomplicated F17.210 Delirium tremens F10.931 Acute pancreatitis K85.90 Physical deconditioning R53.81 Muscle weakness (generalized) M62.81 Wernickes encephalopathy E51.2 Acute encephalopathy G93.40
[2023-10-14] MEDS: metoprolol tartrate 25 mg Tablet 12.5 MG PO (15:30)
[2023-10-14 16:37] LABS: Glucose Point of Care 104 mg/dL (70-110)
[2023-10-14 21:11] LABS: Glucose Point of Care 89 mg/dL (70-110)
[2023-10-15] VITALS (9 sets, daily range): BP systolic 141–164; BP diastolic 90–100; PULSE 91–105; RESP 16–19; TEMP 36.4–37; O2SAT 92–98
[2023-10-15] MEDS: metoprolol tartrate 25 mg Tablet 12.5 MG PO (03:27)
[2023-10-15] MEDS: sodium chloride 0.9 % (flush) syringe 10 mL IV ×2 (05:39→17:28)
[2023-10-15 06:24] LABS: Glucose Point of Care 69 mg/dL (70-110)
[2023-10-15] MEDS: multivitamin therapeutic Tablet 1 TAB PO (08:29)
[2023-10-15] MEDS: amoxicillin-clav 875-125 mg Tablet 1 TAB PO ×2 (08:30→17:28)
[2023-10-15] MEDS: PHENobarbital 32.4 mg Tablet PO (08:30)
[2023-10-15] MEDS: folic acid 1 mg Tablet PO (08:30)
[2023-10-15] MEDS: magnesium oxide 400 mg tablet PO ×2 (08:30→17:28)
[2023-10-15] MEDS: amlodipine 10 mg Tablet PO (08:30)
[2023-10-15] MEDS: pantoprazole 40 mg SDV IVP (08:30)
[2023-10-15] MEDS: thiamine 100 mg Tablet PO (08:30)
[2023-10-15] MEDS: cyanocobalamin 1,000 mcg Tablet 1000 MCG PO (08:30)
--- NOTE | 2023-10-15 11:10 | P.PN_ITS ---
Subjective 2 Subjective: Patient is able to walk on his own We will not need SNF placement, patient likely will be to go home by tomorrow For hypertension increase the dose of metoprolol Continue phenobarb Likely will not need phenobarb taper at the time of discharge Vitals/I&O/Wt Last Vital Signs Temp 97.6 F 10/15/23 07:33 Pulse 101 H 10/15/23 08:40 Resp 18 10/15/23 08:40 BP 141/100 10/15/23 07:33 Pulse Ox 98 10/15/23 09:48 O2 Del Method Room Air 10/15/23 09:48 O2 Flow Rate 1 10/15/23 08:40 10/14/23 10/15/23 10/15/23 22:59 06:59 14:59 Intake Total 240 / 840 200 / 200 Output Total 700 / 700 Balance -460 / 140 200 / 200 Weight last 48 hrs Weight 92.136 kg Weight 93.894 kg Weight 94.71 kg Physical Exam 2 Narrative: No severe signs of withdrawal Pleasant cooperative Nonfocal neuroexam Working with PT Pleasant cooperative S1, S2 Euvolemic No active wheezing Urinary Catheter Management: Clarke: Cath Placed During This Visit: yes Reason for Continuing Indwelling Catheter: Accurate Measurement of Urinary Output in Critically Ill Patients Urinary Catheter Date of Insertion: 10/09/23 Urinary Catheter Time of Insertion: 18:15 Data 10/14/23 10:39 10/14/23 10:39 Micro: Microbiology 10/09/23 11:16 Blood Culture - Final Blood NO GROWTH AFTER 5 DAYS 10/09/23 10:30 Blood Culture - Final Blood NO GROWTH AFTER 5 DAYS A&P Assessment and plan (1) Alcohol dependence with withdrawal: Qualifiers: Complication of substance-induced condition: with delirium Qualified Code(s): F10.231 - Alcohol dependence with withdrawal delirium (2) Wernickes encephalopathy: (3) Acute encephalopathy: (4) Physical deconditioning: (5) Nicotine dependence, cigarettes, uncomplicated: Plan Plan to discharge patient back home He is able to work with PT I did not appreciate any ataxia For hypertension increase the dose of metoprolol Continue Augmentin for pneumonia Sepsis: Resolving Doing well on room air Patient smokes 2 packs of cigarettes every day Continue thiamine folic acid and nicotine patch. No need to repeat labs for the morning Omental hernia no significant sign of obstruction Attestations 2 Medical Necessity Statement*: Discharge tomorrow Diagnoses Alcohol dependence with withdrawal delirium F10.231 Complication of substance-induced condition: with delirium Wernickes encephalopathy E51.2 Acute encephalopathy G93.40 Physical deconditioning R53.81 Nicotine dependence, cigarettes, uncomplicated F17.210
[2023-10-15] MEDS: metoprolol tartrate 25 mg Tablet 50 MG PO ×2 (11:37→23:18)
[2023-10-15 11:38] LABS: Glucose Point of Care 112 mg/dL (70-110)
[2023-10-15] MEDS: clotrimazole-betamethasone cream 15gm 1 APPLIC TOPICAL ×2 (14:10→20:44)
[2023-10-15 16:46] LABS: Glucose Point of Care 85 mg/dL (70-110)
[2023-10-15 20:25] LABS: Glucose Point of Care 97 mg/dL (70-110)
[2023-10-16] VITALS: BP 178/93; PULSE 108; RESP 18; TEMP 36.8; O2SAT 93
[2023-10-16 01:16] VITALS: BP 160/94; PULSE 88
[2023-10-16 04:00] VITALS: BP 169/95; PULSE 91; RESP 18; TEMP 36.6; O2SAT 93
--- NOTE | 2023-10-16 06:00 | PC.NURSE ---
This nurse noted that patient's central line appeared to be pulled further out than on previous checks. Notified Dr. Ahmadi. Dr. Ahmadi gave orders to remove central line and to let dayshift know that the patient has no vascular access at this time, and that a line can be started if needed if the patient does not discharge today. This nurse removed the central line, catheter tip was intact. Held pressure for 10 minutes, after ten minutes the site was checked for bleeding or signs of hematoma, which there was none. 2x2 radha and tegaderm applied to the site.
[2023-10-16 06:38] LABS: Glucose Point of Care 94 mg/dL (70-110)
[2023-10-16 07:13] VITALS: BP 159/93; PULSE 86; RESP 17; TEMP 36.8; O2SAT 92
[2023-10-16 08:50] VITALS: PULSE 110; RESP 18; O2SAT 96
[2023-10-16] MEDS: thiamine 100 mg Tablet PO (08:50)
[2023-10-16] MEDS: amoxicillin-clav 875-125 mg Tablet 1 TAB PO (08:50)
[2023-10-16] MEDS: magnesium oxide 400 mg tablet PO (08:50)
[2023-10-16] MEDS: amlodipine 10 mg Tablet PO (08:50)
[2023-10-16] MEDS: PHENobarbital 32.4 mg Tablet PO (08:50)
[2023-10-16] MEDS: multivitamin therapeutic Tablet 1 TAB PO (08:50)
[2023-10-16] MEDS: folic acid 1 mg Tablet PO (08:50)
[2023-10-16] MEDS: cyanocobalamin 1,000 mcg Tablet 1000 MCG PO (08:50)
[2023-10-16] MEDS: clotrimazole-betamethasone cream 15gm 1 APPLIC TOPICAL (08:52)
--- NOTE | 2023-10-16 09:05 | P.DS_ITS ---
Discharge Providers Date of Admission: 10/09/23 13:37 Date of Discharge: October 16, 2023 Attending Provider at Admission: Darcy Miller MD Attending Provider at Discharge: Navi Thorne MD Diagnoses at Discharge Discharge Diagnosis (1) Alcohol dependence with withdrawal: Status: Acute Qualifiers: Complication of substance-induced condition: with delirium Qualified Code(s): F10.231 - Alcohol dependence with withdrawal delirium (2) Wernickes encephalopathy: Status: Acute (3) Acute encephalopathy: Status: Acute (4) Physical deconditioning: Status: Acute (5) Nicotine dependence, cigarettes, uncomplicated: Status: Chronic Reason for Visit Reason for Visit: SOB Hospital Course Hospital Course 53-year-old male who was admitted for management evaluation of alcohol withdrawal symptoms, he was put on antibiotics for pneumonia, his elevated troponin was deemed secondary to type II process, he has stable thrombocytopenia related to alcohol abuse, patient was able to work with PT, no significant ataxi a, his sepsis criteria was met, at the time of discharge she will get thiamine, folic acid along Augmentin. Patient also got scrotal ultrasound which showed omental hernia, no signs of obstruction. Patient received phenobarbital throughout hospitalization. Within with phenobarbital as we do not have to taper it as it has very long half-life. Patient is remarkably doing well. For his hypertension he will receive metoprolol and amlodipine Physical Exam Narrative: NIH 0 Pleasant cooperative Walking on his own Hemodynamically stable Hypertensive Nonfocal neuroexam Abdomen soft distended Urinary Catheter Management: Clarke: Cath Placed During This Visit: yes, but has since been removed by the nurse Reason for Continuing Indwelling Catheter: Accurate Measurement of Urinary Output in Critically Ill Patients Urinary Catheter Date of Insertion: 10/09/23 Urinary Catheter Time of Insertion: 18:15 Date Urinary Catheter Removed: 10/14/23 Time Urinary Catheter Discontinued: 15:30 Discharge Data Studies Completed and Pending Completed Studies During Hospitalization Category Date Time Status CT abdomen pelvis w con* [id number] Routine Cat Scan 10/09/23 14:57 Completed CTA chest [CT angio chest PE protcl 02032] Stat Cat Scan 10/09/23 11:10 Completed CXRP [XR chest 1V portable [id number]] Urgent Exams 10/09/23 16:07 Completed XR chest 1V portable [id number] Stat Exams 10/09/23 10:31 Completed CV. echo limited [id number] Routine Ultrasound 10/11/23 06:00 Completed US scrotum [id number] Routine Ultrasound 10/09/23 13:54 Completed Pending at discharge Category Date Time Status Sputum Culture and Gram Stain Stat Lab 10/09/23 12:58 Uncollected Radiology Impressions Chest CTA 10/09/23 11:10 IMPRESSION: 1. No evidence of pulmonary embolus. 2. Patchy tree-in-bud opacities with subsegmental atelectasis in the RIGHT upper lobe and RIGHT middle lobe likely infectious or inflammatory. 3. No focal consolidation or pleural fluid. Scrotum Ultrasound 10/09/23 13:54 IMPRESSION: 1. Limited evaluation of the testicles. No torsion or mass identified. 2. There is a complex mass extending along the inguinal canals displacing both testicles inferiorly and anteriorly. Differential of this mass is a large omental hernia or complex ascites. CT evaluation would be helpful. Abdomen/Pelvis CT 10/09/23 14:57 IMPRESSION: 1. Acute pancreatitis, as described above. Correlate with serum amylase and lipase levels. No drainable fluid collection. No necrosis or hemorrhage. Follow-up to resolution is recommended. 2. Large, fat containing right inguinal hernia with associated edema and stranding in the hernia sac, possibly secondary to fat incarceration. 3. Superimposed reticulonodular infiltrates in the right middle lobe, suggestive of small airway disease. Infection cannot be excluded. 4. Additional findings, as above. COMMENTS: Consistent with the [employer]'s Incidental Findings Committee white paper (J Am Sandra Radiol 2018): Any incidental renal lesion less than 1 cm or classified as too small to characterize, or any incidental cystic renal lesion characterized as simple-appearing, is likely benign. No follow-up imaging is recommended for these lesions per consensus recommendations based on imaging criteria. Chest X-Ray 10/09/23 16:07 IMPRESSION: Right internal jugular central venous catheter in place with its tip overlying the cavoatrial junction. No clinically significant pneumothorax. Laboratory Results WBC 7.67 10^3/uL (3.29-11.43) 10/14/23 10:39 RBC 3.48 10^6/uL (3.85-5.65) L 10/14/23 10:39 Hgb 12.70 g/dL (11.27-16.99) 10/14/23 10:39 Hct 37.1 % (37-53) 10/14/23 10:39 MCV 106.6 fl (82-101) H 10/14/23 10:39 MCH 36.5 pg (27-33) H 10/14/23 10:39 MCHC 34.2 g/dL (30-55) 10/14/23 10:39 RDW 13.3 % (12.1-15.1) 10/14/23 10:39 Plt Count 159 10^3/cmm (157-399) 10/14/23 10:39 MPV 9.8 fL (7.4-10.4) 10/14/23 10:39 Neut % (Auto) 72.5 % 10/14/23 10:39 Lymph % (Auto) 12.3 % 10/14/23 10:39 Nobles % (Auto) 13.0 % 10/14/23 10:39 Eos % (Auto) 1.0 % 10/14/23 10:39 Baso % (Auto) 0.3 % 10/14/23 10:39 Neut # (Auto) 5.56 10^3/uL (1.8-7.7) 10/14/23 10:39 Lymph # (Auto) 0.9 10^3/uL (0.8-4.8) 10/14/23 10:39 Nobles # (Auto) 1.0 10^3/uL (0.2-0.9) H 10/14/23 10:39 Eos # (Auto) 0.1 10^3/uL (0.0-0.8) 10/14/23 10:39 Baso # (Auto) 0.0 10^3/uL (0.0-0.1) 10/14/23 10:39 Nucleated RBC % (auto) 0 % 10/14/23 10:39 Nucleated RBCs # 0.0 /100WBC 10/14/23 10:39 PT 15.60 SECONDS (12.1-14.9) H 10/13/23 03:07 INR 1.20 (0.8-1.2) 10/13/23 03:07 APTT 32.9 SECONDS (23.9-36.7) 10/09/23 10:30 D-Dimer 8.03 ug/mLFEU (0-0.59) H 10/09/23 10:30 Specimen Type Arterial 10/10/23 05:41 Sample Site Radial, right 10/10/23 05:41 O2 Sat Pulse Oximetry 93.4 % 10/10/23 05:41 ABG pH 7.46 (7.35-7.45) H 10/10/23 05:41 ABG pCO2 35.1 mmHg (35-45) 10/10/23 05:41 ABG pO2 61.1 mmHg (80.0-100.0) L 10/10/23 05:41 ABG PO2/FiO2 Ratio 286 10/09/23 16:25 ABG HCO3 24.7 mmol/L (22-26) 10/10/23 05:41 ABG O2 Saturation 94.6 10/09/23 13:52 ABG Base Excess 1.2 mmol/L (-2.0-2.0) 10/10/23 05:41 [place] Test Pos 10/10/23 05:41 A-a O2 Gradient 5.2 mmHg (5-10) 10/09/23 13:52 Hematocrit 44.8 % (42-52) 10/10/23 05:41 Hgb O2 Saturation 91.0 % (95-100) L 10/09/23 13:52 Carboxyhemoglobin 2.8 %THgb (0.4-20.1) 10/09/23 13:52 Methemoglobin 1.0 % (0.4-1.5) 10/09/23 13:52 Total Hemoglobin 15.2 g/dL (14-18) 10/09/23 13:52 Sodium 131.0 mmol/L (131-143) 10/09/23 13:52 Potassium 3.9 mmol/L (3.5-5.0) 10/09/23 13:52 Glucose 100.0 mg/dL (70-115) 10/09/23 13:52 Ionized Calcium 1.1 mmol/L (1.1-1.4) 10/09/23 13:52 O2 Delivery Device Nc 10/10/23 05:41 O2 Liters/Min 3.0 % 10/10/23 05:41 FiO2 21.0 % 10/09/23 16:25 Specimen Drawn By Mihaela 10/10/23 05:41 Chief Lifestyle Officer ID Mihaela 10/10/23 05:41 Blood Gas Notified Time 0541 10/10/23 05:41 Sodium 132 mmol/L (136-145) L 10/14/23 10:39 Potassium 3.6 mmol/L (3.5-5.1) 10/14/23 10:39 Chloride 97 mmol/L (98-107) L 10/14/23 10:39 Carbon Dioxide 19 mmol/L (22-29) L 10/14/23 10:39 Anion Gap 19.6 (5-19) H 10/14/23 10:39 BUN 4 mg/dL (6-20) L 10/14/23 10:39 Creatinine 0.5 mg/dL (0.7-1.2) L 10/14/23 10:39 GFR Calculation 173.3 mL/min (90-130) H 10/14/23 10:39 Glucose 85 mg/dL (65-115) 10/14/23 10:39 POC Glucose 94 mg/dL (70-110) 10/16/23 06:27 Estimat Average Glucose 117 10/10/23 04:20 Hemoglobin A1c 5.7 % (4.0-6.0) 10/10/23 04:20 Calculated Osmolality 270 mOsm/kg (285-295) L 10/14/23 10:39 Lactic Acid 12.5 mmol/L (0.5-2.2) H* 10/09/23 10:30 Lactic Acid (Sepsis) 4.2 mmol/L (0.5-2.2) H* 10/09/23 13:26 Uric Acid 3.3 mg/dL (3.4-7.0) L 10/10/23 04:20 Calcium 7.9 mg/dL (8.5-10.5) L 10/14/23 10:39 Phosphorus 2.7 mg/dL (2.5-4.5) 10/13/23 03:07 Magnesium 1.9 mg/dL (1.7-2.3) 10/13/23 03:07 Total Bilirubin 0.6 mg/dL (0.15-1.2) 10/14/23 10:39 AST 110 U/L (0-40) H 10/14/23 10:39 ALT 62 U/L (0-41) H 10/14/23 10:39 Alkaline Phosphatase 90 U/L (40-130) 10/14/23 10:39 Ammonia 21 umol/L (16-60) 10/11/23 14:22 Troponin T Baseline 18 ng/L (0-15) H 10/09/23 10:30 Troponin T 120 Minute 18.55 ng/L (0-15) H 10/09/23 12:30 Delta Troponin T 0.55 ABS# (0-10) 10/09/23 12:30 Troponin T Hi Sens 6Hr 24.99 ng/L (0-15) H 10/09/23 16:40 Troponin T Hi Sens 6Hr Delta 6.99 ng/L (0-12) 10/09/23 16:40 C-Reactive Protein 60.8 mg/L (0.0-4.9) H 10/13/23 03:07 NT-Pro-B Natriuret Pep 289 pg/mL (0-125) H 10/12/23 03:35 Total Protein 6.1 g/dL (6.6-8.7) L 10/14/23 10:39 Albumin 2.7 g/dL (3.5-5.2) L 10/14/23 10:39 Globulin 3.4 g/dL (1.3-4.6) 10/14/23 10:39 Triglycerides 58 mg/dL (0-150) 10/10/23 04:20 Cholesterol 110 mg/dL (0-200) 10/10/23 04:20 LDL Cholesterol, Calc 30 mg/dL (50-129) L 10/10/23 04:20 HDL Cholesterol 68 mg/dL (60-100) 10/10/23 04:20 LDL/HDL Ratio 0.44 RATIO (0.00-3.22) 10/10/23 04:20 Cholesterol/HDL Ratio 1.62 mg/dL (1.0-5.00) 10/10/23 04:20 Lipase 183 U/L (13-60) H 10/10/23 04:20 Procalcitonin 0.32 ng/mL (0-0.5) 10/13/23 03:07 Urine Color [place] (Yellow) A 10/09/23 14:53 Urine Appearance Clear (CLEAR) 10/09/23 14:53 Urine pH Not Reportable 10/09/23 14:53 Ur Specific [place] Not Reportable 10/09/23 14:53 Urine Protein Not tested (Negative) 10/09/23 14:53 Urine Glucose (UA) Not tested (Normal) 10/09/23 14:53 Urine Ketones Not tested (Negative) H 10/09/23 14:53 Urine Blood Not tested (Negative) A 10/09/23 14:53 Urine Nitrate Not tested (Negative) A 10/09/23 14:53 Urine Bilirubin Not tested (Negative) 10/09/23 14:53 Urine Urobilinogen Not tested mg/dL (Negative) A 10/09/23 14:53 Ur Leukocyte Esterase Not tested (Negative) A 10/09/23 14:53 Urine RBC 0-4 /hpf (0-2) H 10/09/23 14:53 Urine WBC 0-4 /hpf (0-5) H 10/09/23 14:53 Ur Squamous Epith Cells 0-4 /hpf (0-5) H 10/09/23 14:53 Amorphous Sediment Not Reportable 10/09/23 14:53 Urine Bacteria None /hpf (NONE) 10/09/23 14:53 Hyaline Casts 25-40 /lpf H 10/09/23 14:53 Urine Mucus 1+ /hpf 10/09/23 14:53 Urine Opiates Screen Negative ng/mL (Negative) 10/09/23 14:53 Ur Barbiturates Screen Negative ng/mL (Negative) 10/09/23 14:53 Ur Phencyclidine Scrn Negative ng/mL (Negative) 10/09/23 14:53 Ur Amphetamines Screen Negative ng/mL (Negative) 10/09/23 14:53 U Benzodiazepines Scrn Positive ng/mL (Negative) H 10/09/23 14:53 Urine Cocaine Screen Negative ng/mL (Negative) 10/09/23 14:53 U Marijuana (THC) Screen Negative ng/mL (Negative) 10/09/23 14:53 Ethyl Alcohol < 10 mg/dL (0-10) 10/09/23 10:30 Serum Ketones Negative (Negative) 10/09/23 11:41 C. difficile (PCR) Negative (Negative) 10/13/23 22:21 Hepatitis A IgM Ab Non-reactive (Nonreactive) 10/10/23 04:20 Hep Bs Antigen Non-reactive (Nonreactive) 10/10/23 04:20 Hep B Core IgM Ab Non-reactive (Nonreactive) 10/10/23 04:20 Hepatitis C Antibody Non-reactive (Nonreactive) 10/10/23 04:20 SARS-CoV-2 Ag (Rapid) Negative (Negative) 10/09/23 12:25 Blood Type O Positive 10/09/23 13:26 Rho(D) Type Rh positive 10/09/23 13:26 Antibody Screen Negative 10/09/23 13:26 Vitals Last Vital Signs Temp 98.2 F 10/16/23 07:13 Pulse 110 H 10/16/23 08:50 Resp 18 10/16/23 08:50 BP 159/93 10/16/23 07:13 Pulse Ox 96 10/16/23 08:50 O2 Del Method Room Air 10/16/23 08:50 O2 Flow Rate 1 10/15/23 08:40 Discharge Plan Discharge Patient Disposition: Home Condition: Stable Prescriptions: New thiamine mononitrate (vit B1) [Vitamin B-1 (mononitrate)] 100 mg Tablet 100 mg PO DAILY Qty: 60 3RF cyanocobalamin (vitamin B-12) [Vitamin B-12] 1,000 mcg Tablet 1,000 mcg PO DAILY Qty: 60 2RF metoprolol tartrate 25 mg Tablet 50 mg PO Q12H Qty: 60 3RF folic acid 1 mg Tablet 1 mg PO DAILY Qty: 60 2RF magnesium oxide 400 mg (241.3 mg magnesium) Tablet 400 mg PO BID Qty: 10 0RF amoxicillin-pot clavulanate 875-125 mg Tablet 1 tab PO BID Qty: 6 0RF amlodipine 10 mg Tablet 10 mg PO DAILY Qty: 30 3RF lisinopril 10 mg tablet 10 mg PO DAILY Qty: 30 3RF No Action No Known Home Medications Discharge Orders: Discharge Order (Routine); Ordered 10/16/23 Ordered By: Navi Thorne Discharge Diet: Regular Discharge Activity: Increase activity as tolerated Patient Instructions: Opioid Safety Discharge Attestations Time Spent in Discharge Care*: greater than 30 min Quality Metrics Clinical Quality Measures [ No reported AMI, CVA or VTE this stay] Coding Level of Care Code Acute Code for Chg Fwd Diagnoses Alcohol dependence with withdrawal delirium F10.231 Complication of substance-induced condition: with delirium Wernickes encephalopathy E51.2 Acute encephalopathy G93.40 Physical deconditioning R53.81 Nicotine dependence, cigarettes, uncomplicated F17.210
[2023-10-16 11:11] VITALS: BP 159/93; PULSE 110; RESP 18; O2SAT 96
== END 2023-10-16 10:45 | disposition home or self-care (01) | DRG 871 ==
LOC: ER 13:07 → ICU 13:37 → MEDSURG 10-13 09:52
PROVIDERS: Family Medicine; Internal Medicine; Admitting Provider Hospitalist; Emergency Provider Emergency Medicine; Visit Provider Internal Medicine
DX: A41.9 Sepsis, unspecified organism (principal); I21.A1 Myocardial infarction type 2; J69.0 Pneumonitis due to inhalation of food and vomit; K85.20 Alcohol induced acute pancreatitis without necrosis or infection; F10.231 Alcohol dependence with withdrawal delirium; K40.30 Unilateral inguinal hernia, with obstruction, without gangrene, not specified as recurrent; E87.20 Acidosis, unspecified; E51.2 Wernicke's encephalopathy; R65.20 Severe sepsis without septic shock; F10.20 Alcohol dependence, uncomplicated; I10 Essential (primary) hypertension; F17.210 Nicotine dependence, cigarettes, uncomplicated; R74.8 Abnormal levels of other serum enzymes; D69.59 Other secondary thrombocytopenia; E83.42 Hypomagnesemia; Z11.52 Encounter for screening for COVID-19; Z86.73 Personal history of transient ischemic attack (TIA), and cerebral infarction without residual deficits
CPT/HCPCS: 36415; 36416; 36592; 36600; 51702; 71045; 71275; 74177; 76870; 80048; 80051; 80053; 80061; 80074; 80306; 80307; 81003; 81015; 82009; 82140; 82330; 82803; 82805; 82962; 83036; 83605; 83690; 83735; 83880; 84100; 84145; 84484; 84550; 85025; 85378; 85610; 85730; 86140; 86850; 86900; 87040; 87426; 87449; 87493; 92507; 92523; 92526; 92610; 93005; 93308; 94640; 94664; 96365; 96372; 96375; 96376; 97110; 97116; 97163; 97167; 97530; 97535; 99285; 99291; 99292; J0360; J0456; J0696; J1815; J2060; J2470; J2560; J3411; J3475; J3490; J7030; J7050; J7120; J7613; J7799; Q9967

== ENCOUNTER 2024-08-29 20:35 | Observation (INO) | payer MEDICAID, BC, SELFPAY ==
[2024-08-29 20:40] VITALS: BP 178/87; PULSE 107; RESP 16; TEMP 36.5; O2SAT 98; BMI 26.4
--- NOTE | 2024-08-29 20:48 | PC.NURSE ---
stroke alert called at 2047
--- NOTE | 2024-08-29 20:52 | ED_ITS ---
HPI - Neuro Symptoms/Deficit 2 General: Chief Complaint: Neuro Symptoms/Deficit Stated Complaint: [place] Stroke Time Seen by Provider: 08/29/24 20:48 History of Present Illness: Generally well-appearing 54-year-old male seen for left-sided facial droop of 2 days duration. He states he also has had left arm tingling for the last 2 months that somewhat got worse over the last 2 days. Facial droop does not involve his eye or eyelid and has no facial numbness that he can tell. He denies visual disturbance, headache, recent sickness or fever. He smokes 2 to 3 packs a day and is post take blood pressure medication but he does not. He is never been told he has atrial fibrillation. He has no chest pain, shortness of breath, recent sickness or fever and has no other acute complaints. He states that he is able to walk just fine and speak clearly and left leg is working just fine as well. Related Data Previous Rx's ?Medication ?Instructions ?Recorded amlodipine 10 mg tablet 10 mg PO DAILY #30 tabs 05/05 cyanocobalamin (vitamin B-12) 1,000 mcg PO DAILY #60 t abs 10/16/23 1,000 mcg tablet (Vitamin B-12) folic acid 1 mg tablet 1 mg PO DAILY #60 tabs 10/15 lisinopril 10 mg tablet 10 mg PO DAILY #30 tabs 05/05 magnesium oxide 400 mg (241.3 mg 400 mg PO BID #10 tab s 10/16/23 magnesium) tablet metoprolol tartrate 25 mg tablet 50 mg (2 x 25 mg) PO Q12H #60 tabs 10/16/23 thiamine mononitrate (vit B1) 100 100 mg PO DAILY #60 tabs 10/16/23 mg tablet (Vitamin B-1 (mononitrate)) Allergies Allergy/AdvReac Type Severity Reaction Status Date / Time No Known Allergies Allergy Verified 05/28/20 16:30 [facility] ED 2 [facility]: Medical History Acute encephalopathy Wernickes encephalopathy Muscle weakness (generalized) Physical deconditioning Incarcerated right inguinal hernia Delirium tremens Acute pancreatitis Severe sepsis Elevated liver enzymes Elevated troponin Elevated d-dimer Thrombocytopenia High anion gap metabolic acidosis Alcohol dependence with withdrawal Pneumonia Nicotine dependence, cigarettes, uncomplicated History of pancreatitis 09/2023 History of right inguinal hernia Alcohol dependence History of CVA (cerebrovascular accident) 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 Surgical History No significant past surgical history Social History Smoking and tobacco/nicotine status: current every day tobacco/nicotine user Alcohol intake: current Alcohol type: beer and hard liquor Substance/Drug Use: current Other substance/drug use details: rare thc Additional social history: Son Sg Fuentes, Brother Tony Fuentes Household members: none Housing: Other Details: [facility] NIH stroke score 2 NIHSS: Level Of Consciousness - 1a: 0 Level Of Consciousness Questions - 1b: Both Correct Level Of Consciousness Commands - 1c: Both Correct Best Gaze - 2: Normal Visual Xie - 3: No Visual Loss Facial Palsy - 4: P artial Paralysis Motor Arm Right - 5: No Drift Motor Arm Left - 5: No Drift Motor Leg Right - 6: No Drift Motor Leg Left - 6: No Drift Limb Ataxia - 7: Absent Sensory - 8: Normal Best Language - 9: No Aphasia D ysarthia - 10: Normal Extinction And Inattention - 11: 0 Score: Total Score: 2 Physical Exam 2 Const: COMMON NORMALS: no acute distress, patient oriented x3 and alert HENMT: COMMON NORMALS: normocephalic and atraumatic HEAD & SCALP: n ormocephalic and atraumatic Eye: COMMON NORMALS: Equal, round and reactive pupils present, EOMs intact bilaterally and no scleral icterus PUPIL: Yes Equal, round and reactive pupils present Resp: COMMON NORMALS: normal respiratory effort and No retractions Cardio: COMMON NORMALS: regular rate, regular rhythm and No murmurs present (Cardio) RATE: regular rate RHYTHM: regular rhythm GI: COMMON NORMALS: Normal to inspection, nondistended, normoactive bowel sounds present, Soft to palpation and non-tender PALPATION: Yes Soft to palpation Neuro: COMMON NORMALS: patient oriented x3 SENSORIUM/ORIENTATION: Yes alert OTHER: Left facial droop, otherwise normal neurologic exam Skin: COMMON NORMALS: no rashes or lesions noted GENERAL SKIN EXAM: no rashes or lesions noted Course 2 Vital Signs: Vital signs: Vital Signs Temperature 98.1 F 08/30/24 05:04 Pulse Rate 94 08/30/24 05:04 Respiratory Rate 18 08/30/24 05:04 Blood Pressure 138/79 08/30/24 05:04 Pulse Oximetry 98 08/30/24 05:04 Oxygen Delivery Me thod Room Air 08/30/24 00:33 MDM - Neuro Symptoms/Deficit Medical Decision Making In summary, patient is a 54-year-old male seen for 2 days of left-sided facial droop. CT scan shows subacute stroke of the right frontal region consistent with his symptoms. It also shows multiple small infarcts more remotely. He smokes 2 to 3 packs of cigarettes a day and does not take his antihypertensive medication. He has no history of atrial fibrillation. Vital signs are stable and EKG shows sinus rhythm. He will be admitted to the hospitalist service for further workup to elucidate the etiology of his stroke and initiate preventative medication regimen. Lab Data 08/29/24 21:15 08/29/24 21:[address] 08/29/24 20:53 IMPRESSION: Probable acute to subacute infarct in the right frontal lobe multiple prior infarcts in the left frontal lobe and both cerebellar hemispheres. ASSESSMENT: ASPECTS ([place] Stroke Program Early CT Score) is 8. ADDENDUM: 08/29/242118 THIS REPORT CONTAINS FINDINGS THAT MAY BE CRITICAL TO PATIENT CARE. The findings were verbally communicated via telephone conference at 9:17 PM CDT on 08/29/2024 with SANAM LIN. The findings were acknowledged and understood. Laboratory Results WBC 6.74 10^3/uL (3.29-11.43) 08/29/24 21:15 RBC 4.24 10^6/uL (3.85-5.65) 08/29/24 21:15 Hgb 13.90 g/dL (11.27-16.99) 08/29/24 21:15 Hct 39.6 % (37-53) 08/29/24 21:15 MCV 93.4 fl (82-101) 08/29/24 21:15 MCH 32.8 pg (27-33) 08/29/24 21:15 MCHC 35.1 g/dL (30-55) 08/29/24 21:15 RDW 13.2 % (12.1-15.1) 08/29/24 21:15 Plt Count 225 10^3/cmm (157-399) 08/29/24 21:15 MPV 9.1 fL (7.4-10.4) 08/29/24 21:15 Neut % (Auto) 67.3 % 08/29/24 21:15 Lymph % (Auto) 25.2 % 08/29/24 21:15 [place] % (Auto) 5.0 % 08/29/24 21:15 Eos % (Auto) 1.8 % 08/29/24 21:15 Baso % (Auto) 0.4 % 08/29/24 21:15 Neut # (Auto) 4.53 10^3/uL (1.8-7.7) 08/29/24 21:15 Lymph # (Auto) 1.7 10^3/uL (0.8-4.8) 08/29/24 21:15 [place] # (Auto) 0.3 10^3/uL (0.2-0.9) 08/29/24 21:15 Eos # (Auto) 0.1 10^3/uL (0.0-0.8) 08/29/24 21:15 Baso # (Auto) 0.0 10^3/uL (0.0-0.1) 08/29/24 21:15 Nucleated RBC % (auto) 0 % 08/29/24 21:15 Nucleated RBCs # 0.0 /100WBC 08/29/24 21:15 PT 13.50 SECONDS (12.1-14.9) 08/29/24 21:15 INR 0.97 (0.8-1.2) 08/29/24 21:15 APTT 36.6 SECONDS (23.9-36.7) 08/29/24 21:15 Sodium 134 mmol/L (136-145) L 08/29/24 21:15 Potassium 3.8 mmol/L (3.5-5.1) 08/29/24 21:15 Chloride 96 mmol/L (98-107) L 08/29/24 21:15 Carbon Dioxide 21 mmol/L (22-29) L 08/29/24 21:15 Anion Gap 20.8 (5-19) H 08/29/24 21:15 BUN 12 mg/dL (6-20) 08/29/24 21:15 Creatinine 0.9 mg/dL (0.7-1.2) 08/29/24 21:15 GFR Calculation 87.6 mL/min (90-130) L 08/29/24 21:15 Glucose 126 mg/dL (65-115) H 08/29/24 21:15 Calculated Osmolality 279 mOsm/kg (285-295) L 08/29/24 21:15 Calcium 9.2 mg/dL (8.5-10.5) 08/29/24 21:15 Total Bilirubin 0.5 mg/dL (0.15-1.2) 08/29/24 21:15 AST 16 U/L (0-40) 08/29/24 21:15 ALT 15 U/L (0-41) 08/29/24 21:15 Alkaline Phosphatase 80 U/L (40-130) 08/29/24 21:15 Total Protein 7.9 g/dL (6.6-8.7) 08/29/24 21:15 Albumin 4.4 g/dL (3.5-5.2) 08/29/24 21:15 Globulin 3.5 g/dL (1.3-4.6) 08/29/24 21:15 All radiology interpretation(s) finalized by discharge EKG Data EKG 1: Interpretation: time?2124?sinus rhythm, rate of 78, no ST segment elevation or depression, no T wave versions, QTc = 402 Discharge Plan Discharge Patient Disposition: Admitted As Inpatient Admit Provider: Noah Shetty Clinical Impression: Ischemic stroke Condition: Stable Coding Level of Care Code ED [place] 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
--- NOTE | 2024-08-29 20:53 | ECG_ITS ---
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 Measurements Intervals [place] Rate: 78 P: 60 TX: 165 QRS: 67 QRSD: 105 T: 54 QT: 369 QTc: 422 Interpretive Statements SINUS RHYTHM Compared to ECG 10/10/2023 10:08:15 T-wave abnormality no longer present Electronically Signed On 08-30-2024 00:15:15 CDT by Brie Crystal M.D. [email or web address]
--- NOTE | 2024-08-29 20:53 | CTR_ITS ---
PROCEDURE INFORMATION: Exam: CT Head Without Contrast Exam date and time: 08/29/2024 8:54 PM Age: 54 years old Clinical indication: Stroke-like symptoms; Left facial droop; Additional info: Symptoms of acute stroke TECHNIQUE: Imaging protocol: Computed tomography of the head without contrast. Radiation optimization: All CT scans at this facility use at least one of these dose optimization techniques: automated exposure control; mA and/or kV adjustment per patient size (includes targeted exams where dose is matched to clinical indication); or iterative reconstruction. Other technique: STROKE PROTOCOL was implemented. COMPARISON: No relevant prior studies available. RADIATION DOSE METRICS: Total DLP (mGy-cm): 1064.87 FINDINGS: Brain: Atrophy and small-vessel ischemic change greater than expected for the patient's age. There is low attenuation throughout the lateral cortex of the right frontal consistent with a probable acute to subacute infarct. There are other older infarcts in the parafalcine left frontal lobe and both cerebellar hemispheres. No evidence of intracranial hemorrhage, mass effect, midline shift or extra-axial fluid collections. Midline structures are normal. Cerebral ventricles: No ventriculomegaly. Paranasal sinuses: Mucosal thickening in the ethmoid, sphenoid and maxillary sinuses. Mastoid air cells: Visualized mastoid air cells are well aerated. Bones: Unremarkable. No acute fracture. Soft tissues: Unremarkable. CT/CT head thrombolytic [id number] IMPRESSION: Probable acute to subacute infarct in the right frontal lobe multiple prior infarcts in the left frontal lobe and both cerebellar hemispheres. ASSESSMENT: ASPECTS ([place] Stroke Program Early CT Score) is 8.
[2024-08-29 21:17] VITALS: BP 144/86; PULSE 84; RESP 16; O2SAT 98
[2024-08-29 21:24] LABS: Hematocrit 39.6 % (37-53); Hemoglobin 13.90 g/dL (11.27-16.99); Mean Corpuscular HGB Conc 35.1 g/dL (30-55); Mean Corpuscular Hemoglobin 32.8 pg (27-33); Mean Corpuscular Volume 93.4 fl (82-101); Nucleated Red Blood Cells % 0 %; Platelet Count 225 10^3/cmm (157-399); Red Blood Count 4.24 10^6/uL (3.85-5.65); White Blood Count 6.74 10^3/uL (3.29-11.43)
[2024-08-29 21:38] LABS: INR 0.97 (0.8-1.2); Prothrombin Time 13.50 SECONDS (12.1-14.9)
[2024-08-29 21:39] LABS: Partial Thromboplastin Time 36.6 SECONDS (23.9-36.7)
[2024-08-29 21:42] LABS: Alanine Aminotransferase 15 U/L (0-41); Albumin Level 4.4 g/dL (3.5-5.2); Alkaline Phosphatase 80 U/L (40-130); Anion Gap 20.8 (5-19); Aspartate Amino Transferase 16 U/L (0-40); Blood Urea Nitrogen 12 mg/dL (6-20); Calcium 9.2 mg/dL (8.5-10.5); Carbon Dioxide 21 mmol/L (22-29); Chloride 96 mmol/L (98-107); Creatinine Clr Calc Pharmacy 89.2920; Globulin 3.5 g/dL (1.3-4.6); Glucose 126 mg/dL (65-115); Osmolality Calculated 279 mOsm/kg (285-295); Potassium 3.8 mmol/L (3.5-5.1); Sodium 134 mmol/L (136-145); Total Protein 7.9 g/dL (6.6-8.7)
[2024-08-29 21:56] VITALS: BP 140/87; PULSE 105; RESP 18; O2SAT 93
[2024-08-29 22:33] VITALS: BP 146/105; PULSE 120; RESP 18; O2SAT 94
[2024-08-29 22:45] VITALS: BP 146/105; PULSE 78; RESP 18; O2SAT 95
--- NOTE | 2024-08-29 23:18 | P.HP_ITS ---
Providers/Chief Complaint 2 Admitting Physician: Noah Shetty Chief Complaint: [place] Stroke History of Present Illness Vinh Fuentes is a 54 year old patient with a history of hypertension, alcohol dependence (now abstinent), pancreatitis, prior strokes (left frontal-parietal infarct in 2010), and heavy tobacco use presenting with two days of new left- sided facial droop. The patient also reports chronic left arm tingling for two months. They noticed facial changes a few days ago and presented to the emergency department, where a head CT showed a probable ysngn-my-wtlytyyj right frontal lobe infarct with multiple prior infarcts in the left frontal lobe and cerebellar hemispheres. Initial ED blood pressure was 178/87 mmHg, improving to 146/105 mmHg after time. Blood glucose was 126 mg/dL; basic metabolic panel and INR were within normal limits except mild low bicarbonate (21 mEq/L) and slightly elevated anion gap (20.8). The patient denies current alcohol use (quit one year ago) but smokes 2?3 packs/day and is non-adherent with prescribed antihypertensive medication. No history of diabetes; A1C testing was proposed. They deny medication allergies. Review of systems otherwise negative for lower- extremity swelling, sleep-apnea symptoms, or swallowing difficulty, though care team will screen for dysphagia given facial weakness. His brother gave him several aspirins to take today prior to going to ED. Review of Systems 2 Const: Denies: fever(s), chills, body aches or malaise ENMT: Denies: throat pain Card: Denies: chest pain, edema, pre-syncope or dyspnea on exertion Resp: Denies: dyspnea, productive cough, change in phlegm color or hemoptysis GI: Denies: abdominal pain, nausea, vomiting, diarrhea, constipation, hematochezia or melena : Denies: flank pain, difficulty urinating, urinary frequency or hematuria Musc: Denies: back pain, joint swelling or joint redness Skin/Breast: Denies: rash or new lesions Neuro: Reports: other (Facial droop); Denies: headache(s) or confusion Medications/Allergies Home Medications ?Medication ?Instructions ?Recorded ?Confirmed ?Last Taken ?Type amlodipine 10 mg tablet 10 mg PO DAILY #30 tabs 05/05 Unknown Rx amoxicillin 875 mg-potassium 1 tab PO BID #6 tabs 05/05 Unknown Rx clavulanate 125 mg tablet cyanocobalamin (vitamin B-12) 1,000 mcg PO DAILY #60 t abs 10/16/23 Unknown Rx 1,000 mcg tablet (Vitamin B-12) folic acid 1 mg tablet 1 mg PO DAILY #60 tabs 10/15 Unknown Rx lisinopril 10 mg tablet 10 mg PO DAILY #30 tabs 05/05 Unknown Rx magnesium oxide 400 mg (241.3 mg 400 mg PO BID #10 tab s 10/16/23 Unknown Rx magnesium) tablet metoprolol tartrate 25 mg tablet 50 mg (2 x 25 mg) PO Q12H #60 tabs 10/16/23 Unknown Rx thiamine mononitrate (vit B1) 100 100 mg PO DAILY #60 tabs 10/16/23 Unknown Rx mg tablet (Vitamin B-1 (mononitrate)) Allergies Allergy/AdvReac Type Severity Reaction Status Date / Time No Known Allergies Allergy Verified 05/28/20 16:30 PFSH Acute 2 PFSH: Medical History Acute encephalopathy Wernickes encephalopathy Muscle weakness (generalized) Physical deconditioning Incarcerated right inguinal hernia Delirium tremens Acute pancreatitis Severe sepsis Elevated liver enzymes Elevated troponin Elevated d-dimer Thrombocytopenia High anion gap metabolic acidosis Alcohol dependence with withdrawal Pneumonia Nicotine dependence, cigarettes, uncomplicated History of pancreatitis 09/2023 History of right inguinal hernia Alcohol dependence History of CVA (cerebrovascular accident) 2010 left frontal parietal region infarction Surgical History No significant past surgical history Social History Smoking and tobacco/nicotine status: current every day tobacco/nicotine user Alcohol intake: current Alcohol type: beer and hard liquor Substance/Drug Use: current Other substance/drug use details: rare thc Additional social history: Son Sg Fuentes, Brother Tony Fuentes Household members: none Housing: Other Details: motel Vitals/I&O/Wt Last Vital Signs Temp 97.7 F 08/29/24 20:40 Pulse 78 08/29/24 22:45 Resp 18 08/29/24 22:45 BP 146/105 08/29/24 22:45 Pulse Ox 95 08/29/24 22:45 O2 Del Method Room Air 08/29/24 20:40 08/29/24 08/29/24 08/30/24 14:59 22:59 06:59 Intake Total 0 / 0 Balance 0 / 0 Weight last 48 hrs Weight 74.48 kg Physical Exam 2 Const: COMMON NORMALS: patient oriented x3 and alert GENERAL APPEARANCE: c ooperative ORIENTATION/CONSCIOUSNESS: Yes awake HENMT: COMMON NORMALS: oropharynx normal Neck/C-Spine: COMMON NORMALS: no JVD Resp: COMMON NORMALS: normal respiratory effort and clear to auscultation bilaterally AUSCULTATION: clear to auscultation bilaterally Cardio: COMMON NORMALS: no JVD, regular rhythm, S1 normal heart sound present, S2 normal heart sound present and No murmurs present (Cardio) RHYTHM: regular rhythm HEART SOUNDS: S1 normal heart sound present and S2 normal heart sound present GI: COMMON NORMALS: Normal to inspection, nondistended, normoactive bowel sounds present, Soft to palpation and non-tender PALPATION: Yes Soft to palpation Extremity: COMMON NORMALS: no joint enlargement and no pedal edema Neuro: COMMON NORMALS: patient oriented x3 and moves all extremities S ENSORIUM/ORIENTATION: Yes alert OTHER: L side facial droop. He is awake, alert and responsive, following directions. No trouble with horizontal tracking. VF full to confrontation. Minor trouble on FNF w L hand. No trouble with HTS. No drift. Sensation symmetrical, no extinction. Skin: COMMON NORMALS: no rashes or lesions noted GENERAL SKIN EXAM: no rashes or lesions noted Data 08/29/24 21:15 08/29/24 21:15 A&P Assessment and plan 1. Ischemic stroke: Subacute ischemic stroke : Probable pflqw-[id number]-ufcyjhfd right frontal lobe infarct with multiple prior infarcts; presenting with left facial droop. Several weeks back having some tingling and loss of coordination in the left hand. NIHSS 3. Outside tPA window; risk factors include heavy smoking and uncontrolled hypertension. Glucose noted 126 without prior history of diabetes. Reviewed vitals, CBC, INR, CMP, head CT, EKG on my interpretation with sinus rhythm, pending official read. Reviewed ED provider note, discussed with ED provider. Noted recurrent strokes on CT, consider embolic etiology. - Admit to hospitalist service for stroke monitoring. - Continuous cardiac telemetry to detect paroxysmal atrial fibrillation. Arrange for 21-day monitor at discharge. - Order transthoracic echocardiogram with bubble study to assess for cardiac source of emboli (e.g., septal defect). - Order carotid duplex ultrasound to evaluate for carotid stenosis. - Begin antiplatelet therapy: 81 mg aspirin daily starting tomorrow (held 24 h after patient-taken dose at home today). ABCD2 3. - Start high-intensity statin for secondary prevention. - Speech/swallow evaluation to assess aspiration risk. PT, OT assessment. - Extensive discussion with him regarding smoking cessation, needs to quit smoking. Needs to continue to monitor optimize blood pressure, long-term goal 120/80. - Needs to reestablish with a PCP. - Arrange follow-up with neurology after discharge. He states he has not been taking good care of himself, and fully understands that he needs to start and intends to do so. He states he had previously quit drinking but had not quite quit smoking. He had run out of prescriptions for his blood pressure medications and will need refills in addition to reestablishing with PCP. He states he is happy that he is getting help to regain control of his conditions. Plan: Hypertension : Chronic hypertension with poor medication adherence; ED BPs 178/87 then 146/105. - Restart home antihypertensive regimen once medically cleared; adjust as needed to achieve long-term goal < 120/80 mmHg. - Monitor blood pressure during hospitalization; allow slightly higher pressures acutely post-stroke, then titrate down. - Ensure prescription supply on discharge and arrange primary care follow-up. Tobacco dependence : Smokes 2?3 packs/day; major modifiable stroke risk factor. Discussed smoking-cessation for 4 minutes, including risk of recurrent stroke, recurrence of more severe stroke, other comorbidities, need for cessation. Offered nicotine replacement, but he declines at current time. He states when he knows he can smoke he does not have the need for it. - Document readiness to quit and reinforce cessation benefits. Alcohol dependence (in remission) : History of heavy alcohol use; quit ~1 year ago. - Continue abstinence; monitor for withdrawal though unlikely given timeframe. - Reinforce avoidance of alcohol to reduce future stroke and pancreatitis risk. Evaluate for diabetes mellitus : Blood glucose 126 mg/dL without known diabetes. - Ordered hemoglobin A1C to screen for diabetes/pre-diabetes. - If elevated, initiate diabetic education and management plan. Health maintenance : Needs re-establishment of primary care and routine preventive services. - Assist patient to establish a primary care physician after discharge. Follow-up : Transition of care after hospitalization. - Daytime hospitalist team to assume care and review pending studies. - Arrange outpatient neurology and primary care follow-up appointments. - Educate patient on stroke warning signs and importance of medication adherence. PDMP PDMP Reviewed: Not Reviewed Attestations 2 Medical Necessity Statement*: Place in observation for additional assessment management after subacute stroke in a gentleman with smoking, uncontrolled hypertension, hyperglycemia, additional comorbidities as above. and High MDM includes number and complexity of problems actively addressed during encounter and amount and/or complexity of data reviewed/ordered [ previous or external records, resulted lab(s)/test(s), ordered lab(s)/test(s) and other healthcare professional discussion] as documented Diagnoses Ischemic stroke I63.9
[2024-08-30] VITALS (8 sets, daily range): BP systolic 114–152; BP diastolic 64–81; PULSE 65–105; RESP 16–18; TEMP 36.5–36.9; O2SAT 95–98; BMI 26.3
[2024-08-30 03:30] LABS: Cholesterol 173 mg/dL (0-200); HDL Cholesterol 44 mg/dL (60-100); Triglycerides 69 mg/dL (0-150)
[2024-08-30 03:32] LABS: Estmated Average Glucose 114; Hemoglobin A1C 5.6 % (4.0-6.0)
--- NOTE | 2024-08-30 06:00 | USR_ITS ---
PROCEDURE INFORMATION: Exam: US Duplex Bilateral Extracranial Arteries; Complete; Carotid Arteries Exam date and time: 08/30/2024 3:26 PM Age: 54 years old Clinical indication: Other: CVA TECHNIQUE: Imaging protocol: Real-time duplex ultrasound scan of the bilateral extracranial arteries combining aguayo scale, color Doppler and spectral waveform analysis with image documentation. Complete exam. Exam focused on the carotid arteries. COMPARISON: CT head thrombolytic [id number] 08/29/2024 8:54 PM FINDINGS: Right common carotid artery: Unremarkable. No occlusion or stenosis. Waveforms are normal. Right internal carotid artery: Unremarkable. No occlusion or stenosis. Waveforms are normal. Right ICA/CCA ratio: 0.8. Within normal limits. Right external carotid artery: No stenosis in the origin. Right vertebral artery: Unremarkable. Antegrade flow. Left common carotid artery: Unremarkable. No occlusion or stenosis. Waveforms are normal. Left internal carotid artery: Unremarkable. No occlusion or stenosis. Waveforms are normal. Left ICA/CCA ratio: 0.9. Within normal limits. Left external carotid artery: No stenosis in the origin. Left vertebral artery: Unremarkable. Antegrade flow. US/CV carotid duplex BI* [id number] IMPRESSION: No hemodynamically significant carotid arterial stenosis. REFERENCES: SRU CRITERIA. The degree of internal carotid artery stenosis is based on criteria defined by the Society of Radiologists in Ultrasound (SRU). Normal is no stenosis. Mild is less than 50% stenosis. Moderate is 50-69% stenosis. Severe is greater than 69% stenosis to near occlusion. Near occlusion is a markedly narrowed lumen. Total occlusion is no detectable patent lumen. Reference: Cyndie Mackenzie, et al. Carotid Artery Stenosis: Aguayo-Scale and Doppler US Diagnosis-Society of Radiologists in Ultrasound Consensus Conference. Radiology 2003; 229:340-346.
--- NOTE | 2024-08-30 14:05 | PM.PN ---
Vitals/I&O/Wt Last Vital Signs Temp 98.4 F 08/30/24 11:57 Pulse 72 08/30/24 11:57 Resp 16 08/30/24 11:57 BP 152/76 08/30/24 11:57 Pulse Ox 97 08/30/24 11:57 O2 Del Method Room Air 08/30/24 11:57 08/29/24 08/30/24 08/30/24 22:59 06:59 14:59 Intake Total 0 / 0 1000 / 1000 600 / 600 Balance 0 / 0 1000 / 1000 600 / 600 Weight last 48 hrs Weight 74.021 kg Weight 74.026 kg Weight 74.474 kg Weight 74.48 kg Data 08/29/24 21:15 08/29/24 21:15 A&P Assessment and plan 1. Ischemic stroke: Subacute ischemic stroke : Probable [id number]-uznhqegq right frontal lobe infarct with multiple prior infarcts; presenting with left facial droop. Several weeks back having some tingling and loss of coordination in the left hand. NIHSS 3. Outside tPA window; risk factors include heavy smoking and uncontrolled hypertension. Glucose noted 126 without prior history of diabetes. Reviewed vitals, CBC, INR, CMP, head CT, EKG on my interpretation with sinus rhythm, pending official read. Reviewed ED provider note, discussed with ED provider. Noted recurrent strokes on CT, consider embolic etiology. - Admit to hospitalist service for stroke monitoring. - Continuous cardiac telemetry to detect paroxysmal atrial fibrillation. Arrange for 21-day monitor at discharge. - Order transthoracic echocardiogram with bubble study to assess for cardiac source of emboli (e.g., septal defect). - Order carotid duplex ultrasound to evaluate for carotid stenosis. - Begin antiplatelet therapy: 81 mg aspirin daily starting tomorrow (held 24 h after patient-taken dose at home today). ABCD2 3. - Start high-intensity statin for secondary prevention. - Speech/swallow evaluation to assess aspiration risk. PT, OT assessment. - Extensive discussion with him regarding smoking cessation, needs to quit smoking. Needs to continue to monitor optimize blood pressure, long-term goal 120/80. - Needs to reestablish with a PCP. - Arrange follow-up with neurology after discharge. He states he has not been taking good care of himself, and fully understands that he needs to start and intends to do so. He states he had previously quit drinking but had not quite quit smoking. He had run out of prescriptions for his blood pressure medications and will need refills in addition to reestablishing with PCP. He states he is happy that he is getting help to regain control of his conditions. Plan: Hypertension : Chronic hypertension with poor medication adherence; ED BPs 178/87 then 146/105. - Restart home antihypertensive regimen once medically cleared; adjust as needed to achieve long-term goal < 120/80 mmHg. - Monitor blood pressure during hospitalization; allow slightly higher pressures acutely post-stroke, then titrate down. - Ensure prescription supply on discharge and arrange primary care follow-up. Tobacco dependence : Smokes 2?3 packs/day; major modifiable stroke risk factor. Discussed smoking-cessation for 4 minutes, including risk of recurrent stroke, recurrence of more severe stroke, other comorbidities, need for cessation. Offered nicotine replacement, but he declines at current time. He states when he knows he can smoke he does not have the need for it. - Document readiness to quit and reinforce cessation benefits. Alcohol dependence (in remission) : History of heavy alcohol use; quit ~1 year ago. - Continue abstinence; monitor for withdrawal though unlikely given timeframe. - Reinforce avoidance of alcohol to reduce future stroke and pancreatitis risk. Evaluate for diabetes mellitus : Blood glucose 126 mg/dL without known diabetes. - Ordered hemoglobin A1C to screen for diabetes/pre-diabetes. - If elevated, initiate diabetic education and management plan. Health maintenance : Needs re-establishment of primary care and routine preventive services. - Assist patient to establish a primary care physician after discharge. Follow-up : Transition of care after hospitalization. - Daytime hospitalist team to assume care and review pending studies. - Arrange outpatient neurology and primary care follow-up appointments. - Educate patient on stroke warning signs and importance of medication adherence. PDMP PDMP Reviewed: Not Reviewed Coding Level of Care Code Acute Code for [facility] Diagnoses Ischemic stroke I63.9
--- NOTE | 2024-08-30 19:13 | PM.DCS ---
Discharge Providers Date of Admission: 08/29/24 22:32 Date of Discharge: August 30, 2024 Attending Provider at Admission: Noah Shetty Attending Provider at Discharge: Twan Hamm MD Diagnoses at Discharge Discharge Diagnosis 1. Ischemic stroke: Reason for Visit Reason for Visit: [place] Stroke Brief History: Vinh Fuentes is a 54 year old patient with a history of hypertension, alcohol dependence (now abstinent), pancreatitis, prior strokes (left frontal-parietal infarct in 2010), and heavy tobacco use presenting with two days of new left-sided facial droop. The patient also reports chronic left arm tingling for two months. They noticed facial changes a few days ago and presented to the emergency department, where a head CT showed a probable oqltk-vw-zbxoahjy right frontal lobe infarct with multiple prior infarcts in the left frontal lobe and cerebellar hemispheres. Initial ED blood pressure was 178/87 mmHg, improving to 146/105 mmHg after time. Blood glucose was 126 mg/dL; basic metabolic panel and INR were within normal limits except mild low bicarbonate (21 mEq/L) and slightly elevated anion gap (20.8). The patient denies current alcohol use (quit one year ago) but smokes 2?3 packs/day and is non-adherent with prescribed antihypertensive medication. No history of diabetes; A1C testing was proposed. They deny medication allergies. Review of systems otherwise negative for lower-extremity swelling, sleep-apnea symptoms, or swallowing difficulty, though care team will screen for dysphagia given facial weakness. His brother gave him several aspirins to take today prior to going to ED. Hospital Course Hospital Course Patient's blood pressure remained low here despite not being on any medications. He tolerated atorvastatin and aspirin. Echocardiogram showed no embolic source and carotid Dopplers showed no high-grade stenosis. Vertebrals were antegrade. CT scan showed acute to subacute infarct in the right frontal lobe and multiple prior infarcts in the left frontal lobe and both cerebellar hemispheres. The patient did not have atrial fibrillation here. The patient has Medicaid insurance and will be referred to a physician in the [facility] for follow-up. Consider outpatient Holter monitor Physical Exam Narrative: General well-developed well-nourished male in no acute cardiopulmonary stress CV regular rate and rhythm Lungs clear to auscultation bilaterally Calves no tenderness or pretibial edema Motor oral is Mallampati 1 tongue protrusion deviates to the left smile with left facial droop external ocular movements are intact pupils equally round and reactive to light Handgrips 5/5 right 4+ left biceps and triceps 5/5 right 5 - to 5 on the left still pretty strong next line ankle flexion extension 5/5 right 5 - left Carotid no bruits Mood and affect appropriate Oral Mallampati 1 and he is edentulous Discharge Data Studies Completed and Pending Completed Studies During Hospitalization Category Date Time Status CT head thrombolytic [id number] Stat Cat Scan 08/29/24 20:53 Completed CV. echo w/w bubble cont [id number] Routine Ultrasound 08/30/24 23:45 Completed Pending at discharge Category Date Time Status Drug Screen, Urine Stat Lab 08/29/24 20:53 Uncollected CV carotid duplex BI* [id number] Routine Ultrasound 08/30/24 06:00 Taken Radiology Impressions Head CT 08/29/24 20:53 IMPRESSION: Probable acute to subacute infarct in the right frontal lobe multiple prior infarcts in the left frontal lobe and both cerebellar hemispheres. ASSESSMENT: ASPECTS ([place] Stroke Program Early CT Score) is 8. ADDENDUM: 08/29/242118 THIS REPORT CONTAINS FINDINGS THAT MAY BE CRITICAL TO PATIENT CARE. The findings were verbally communicated via telephone conference at 9:17 PM CDT on 08/29/2024 with SANAM LIN. The findings were acknowledged and understood. Carotid Doppler Study 08/30/24 06:00 IMPRESSION: No hemodynamically significant carotid arterial stenosis. REFERENCES: SRU CRITERIA. The degree of internal carotid artery stenosis is based on criteria defined by the Society of Radiologists in Ultrasound (SRU). Normal is no stenosis. Mild is less than 50% stenosis. Moderate is 50-69% stenosis. Severe is greater than 69% stenosis to near occlusion. Near occlusion is a markedly narrowed lumen. Total occlusion is no detectable patent lumen. Reference: Cyndie Mackenzie, et al. Carotid Artery Stenosis: [place]-Scale and Doppler US Diagnosis-Society of Radiologists in Ultrasound Consensus Conference. Radiology 2003; 229:340-346. Laboratory Results WBC 6.74 10^3/uL (3.29-11.43) 08/29/24 21:15 RBC 4.24 10^6/uL (3.85-5.65) 08/29/24 21:15 Hgb 13.90 g/dL (11.27-16.99) 08/29/24 21:15 Hct 39.6 % (37-53) 08/29/24 21:15 MCV 93.4 fl (82-101) 08/29/24 21:15 MCH 32.8 pg (27-33) 08/29/24 21:15 MCHC 35.1 g/dL (30-55) 08/29/24 21:15 RDW 13.2 % (12.1-15.1) 08/29/24 21:15 Plt Count 225 10^3/cmm (157-399) 08/29/24 21:15 MPV 9.1 fL (7.4-10.4) 08/29/24 21:15 Neut % (Auto) 67.3 % 08/29/24 21:15 Lymph % (Auto) 25.2 % 08/29/24 21:15 [place] % (Auto) 5.0 % 08/29/24 21:15 Eos % (Auto) 1.8 % 08/29/24 21:15 Baso % (Auto) 0.4 % 08/29/24 21:15 Neut # (Auto) 4.53 10^3/uL (1.8-7.7) 08/29/24 21:15 Lymph # (Auto) 1.7 10^3/uL (0.8-4.8) 08/29/24 21:15 [place] # (Auto) 0.3 10^3/uL (0.2-0.9) 08/29/24 21:15 Eos # (Auto) 0.1 10^3/uL (0.0-0.8) 08/29/24 21:15 Baso # (Auto) 0.0 10^3/uL (0.0-0.1) 08/29/24 21:15 Nucleated RBC % (auto) 0 % 08/29/24 21:15 Nucleated RBCs # 0.0 /100WBC 08/29/24 21:15 PT 13.50 SECONDS (12.1-14.9) 08/29/24 21:15 INR 0.97 (0.8-1.2) 08/29/24 21:15 APTT 36.6 SECONDS (23.9-36.7) 08/29/24 21:15 Sodium 134 mmol/L (136-145) L 08/29/24 21:15 Potassium 3.8 mmol/L (3.5-5.1) 08/29/24 21:15 Chloride 96 mmol/L (98-107) L 08/29/24 21:15 Carbon Dioxide 21 mmol/L (22-29) L 08/29/24 21:15 Anion Gap 20.8 (5-19) H 08/29/24 21:15 BUN 12 mg/dL (6-20) 08/29/24 21:15 Creatinine 0.9 mg/dL (0.7-1.2) 08/29/24 21:15 GFR Calculation 87.6 mL/min (90-130) L 08/29/24 21:15 Glucose 126 mg/dL (65-115) H 08/29/24 21:15 Estimat Average Glucose 114 08/30/24 02:37 Hemoglobin A1c 5.6 % (4.0-6.0) 08/30/24 02:37 Calculated Osmolality 279 mOsm/kg (285-295) L 08/29/24 21:15 Calcium 9.2 mg/dL (8.5-10.5) 08/29/24 21:15 Total Bilirubin 0.5 mg/dL (0.15-1.2) 08/29/24 21:15 AST 16 U/L (0-40) 08/29/24 21:15 ALT 15 U/L (0-41) 08/29/24 21:15 Alkaline Phosphatase 80 U/L (40-130) 08/29/24 21:15 Total Protein 7.9 g/dL (6.6-8.7) 08/29/24 21:15 Albumin 4.4 g/dL (3.5-5.2) 08/29/24 21:15 Globulin 3.5 g/dL (1.3-4.6) 08/29/24 21:15 Triglycerides 69 mg/dL (0-150) 08/30/24 02:37 Cholesterol 173 mg/dL (0-200) 08/30/24 02:37 LDL Cholesterol, Calc 115 mg/dL (50-129) 08/30/24 02:37 HDL Cholesterol 44 mg/dL (60-100) L 08/30/24 02:37 LDL/HDL Ratio 2.61 RATIO (0.00-3.22) 08/30/24 02:37 Cholesterol/HDL Ratio 3.93 mg/dL (1.0-5.00) 08/30/24 02:37 Vitals Last Vital Signs Temp 97.8 F 08/30/24 16:00 Pulse 65 08/30/24 16:00 Resp 16 08/30/24 16:00 BP 114/64 08/30/24 16:00 Pulse Ox 96 08/30/24 16:00 O2 Del Method Room Air 08/30/24 16:00 Discharge Plan Discharge Patient Disposition: Home Condition: Stable Prescriptions: New nicotine 21 mg/24 hr patch 24 hour 1 patch transdermal Q24H Qty: 28 0RF nicotine (polacrilex) [Nicorette] 2 mg gum 2 mg buccal Q2H PRN (Reason: nicotine cravings) Qty: 40 0RF atorvastatin [Lipitor] 40 mg tablet 40 mg PO QPM Qty: 60 0RF aspirin 81 mg tablet,delayed release (DR/EC) 81 mg PO DAILY Qty: 100 0RF Continued cyanocobalamin (vitamin B-12) [Vitamin B-12] 1,000 mcg Tablet 1,000 mcg PO DAILY Qty: 60 2RF magnesium oxide 400 mg (241.3 mg magnesium) Tablet 400 mg PO BID Qty: 10 0RF folic acid 1 mg Tablet 1 mg PO DAILY Qty: 60 2RF thiamine mononitrate (vit B1) [Vitamin B-1 (mononitrate)] 100 mg Tablet 100 mg PO DAILY Qty: 60 3RF lisinopril 10 mg tablet 10 mg PO DAILY Qty: 30 3RF Discontinued amlodipine 10 mg Tablet 10 mg PO DAILY Qty: 30 3RF metoprolol tartrate 25 mg Tablet 50 mg PO Q12H Qty: 60 3RF Discharge Order = DC NOW: Discharge Order (Routine); Ordered 08/30/24 Ordered By: Twan Hamm Other Ambulatory Orders: MCT/Event Monitor 14 Days (Routine) Timeframe: 1 Week Facility: [facility] - Location: Radiology Ordered By: Twan Hamm Referrals: jeff [Other] Domenic Zayas MD [Physician, Family Practice] - 1 week Referral Note: Recent stroke started on cholesterol medications and trying to quit smoking We have notified your physician's clinic of the need for a follow-up appointment to be scheduled. If you have not heard from them within the next 2 business days, please call them directly. Problems: Ischemic stroke Discharge Diet: Cardiac and Low Cholesterol Discharge Activity: Increase activity as tolerated Patient Instructions: Nicotine (Into the mouth), Aspirin (By mouth), Nicotine (Absorbed through the skin), Atorvastatin (By mouth), Ischemic Stroke (DC), Opioid Safety, Stroke Stoplight, Patient Portal & Aniya Instructions Activity Restrictions/Additional Instructions: Start wearing nicotine patch 21 mg daily if you need to have more nicotine and feel like you are wanting to smoke you can chew nicotine gum up to another 15 mg worth of nicotine Take your blood pressure at home. Because your blood pressure was not high here I did not resume all of your blood pressure medications but resumed only the lisinopril Keep the amlodipine and metoprolol on hand and if your blood pressure rises your doctor will probably want you to restart it. 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 Return for any new stroke symptoms. Do not wait as long as you did with the stroke because it causes us to be unable to give you the clot busting medications which can minimize your stroke if given in time Discharge Attestations Time Spent in Discharge Care*: greater than 30 min Time Spent in Smoking Cessation: 7 minutes and patient was counseled regarding Chantix, cold turkey quitting, nicotine replacement Quality Metrics Clinical Quality Measures [ Cerebrovascular Accident { Contraindication to Antithrombotic: None; antithrombotic prescribed; Contraindication to Anticoagulation: Overlap treatment not indicated; Contraindication to Statin: None; Statin prescribed; Contraindication to antithrombotic day 2: Drug treatment not indicated; Contraindication to tPA: Did not meet criteria; Onset of Symptoms Date: 08/28/24; Onset of Symptoms Time: 12:00; Reason stroke education not provided: Stroke education provided to patient; Rehab services assessed: Physical therapy, Occupational therapy; Reason rehab assessment not done: Rehab assessment done}] Coding Level of Care Code 54843 Diagnoses Ischemic stroke I63.9 Time Spent (min) 35
--- NOTE | 2024-08-30 20:50 | PC.NURSE ---
Discharge Patient given HS meds and discharge information. This nurse went over discharge information with patient in full with family at bedside. Patient verbalizes understanding of discharge information. Patient discharged via wheelchair to private vehicle with family, escorted by JELANI Corrales.
--- NOTE | 2024-08-30 23:45 | USCV_ITS ---
Vinh Fuentes Age: 54 Gender: M : 1970 Exam Date: 08/30/2024 16:04 Ordering Phys: Noah Shetty MD Technologist: Jamir Joyner Exam Location: [facility] [place] Indication: recurrent multifocal cva BP: 152 / 76 HR: 70 Rhythm: Sinus Technical Quality: MEASUREMENTS (Male / Female) Normal Values 2D ECHO LV Diastolic Diameter PLAX 3.9 cm 4.2 - 5.9 / 3.9 - 5.3 cm IVS Diastolic Thickness 1.3 cm 0.6 - 1.0 / 0.6 - 0.9 cm IVS Systolic Thickness 1.1 cm LVPW Diastolic Thickness 1.7 cm 0.6 - 1.0 / 0.6 - 0.9 cm LVPW Systolic Thickness 2.1 cm LVOT Diameter 2.1 cm LV Ejection Fraction 2D Teich 69.0 % LV Ejection Fraction MOD 4C 55.5 % LV Ejection Fraction MOD 2C 49.3 % LV Ejection Fraction 2C AL 47.8 % LA Diameter 3.5 cm RA Systolic Volume 4C AL 42.8 ml RA Systolic Volume 4C MOD 42.7 ml LA Sys Volume AL 46.1 cm cubed LA Sys Volume Index AL 24.7 cm cubed/m squared Aorta at Sinotubular Diameter 2.2 cm IVC Diameter 1.3 cm M-MODE LA Ao Ratio MM 1.3 AV Cusp Separation MM 2.2 cm DOPPLER AV Peak Velocity 129.0 cm/s LVOT Peak Velocity 117.0 cm/s AV Area Cont Eq vti 2.9 cm squared AV Area Cont Eq pk 3.0 cm squared MV Peak Velocity 95.0 cm/s MV Area PHT 4.2 cm squared Mitral E to A Ratio 0.6 TV Peak Velocity 467.5 cm/s TR Peak Velocity 502.0 cm/s TR Peak Gradient 100.8 mmHg TR Mean Velocity 417.0 cm/s TR Mean Gradient 73.2 mmHg TR Velocity Time Integral 130.7 cm PV Peak Velocity 93.3 cm/s RV Ejection Time 0.3 s FINDINGS Left Ventricle Normal LV size with slightly diminished ejection fraction of 49%. Mild diffuse hypokinesia of the left ventricle.mild left ventricular hypertrophy. Grade I/IV diastolic dysfunction (abnormal relaxation filling pattern), normal to mildly elevated filling pressures. Right Ventricle The right ventricle is normal in size and function. Right Atrium Saline contrast injection revealing no evidence of right-to- left shunt Left Atrium Normal left atrial size. Mitral Valve No gross abnormalities noted Aortic Valve No gross abnormalities noted Tricuspid Valve Trace tricuspid valve regurgitation. Pulmonic Valve Pulmonic valve not well visualized. Pulmonic valve not well visualized. Pericardium Normal pericardium without effusion. Aorta Normal aortic annulus size. IVC Inferior vena cava not visualized. CONCLUSIONS Normal LV size with slightly diminished ejection fraction of 49%. Mild diffuse hypokinesia of the left ventricle.mild left ventricular hypertrophy. Grade I/IV diastolic dysfunction (abnormal relaxation filling pattern), normal to mildly elevated filling pressures. Trace tricuspid valve regurgitation. Normal cardiac chamber sizes. No intracardiac masses. No evidence of any [id number] shunt by saline contrast injection Compared to the study from 10/11/2023, there is slight drop in the LV ejection fraction Dr Brie Crystal MD FAC (Electronically Signed) Final Date: 30 August 2024 17:43 S
== END 2024-08-30 20:50 | disposition home or self-care (01) ==
LOC: ER 22:14 → MEDSURG 23:03
PROVIDERS: Admitting Provider Internal Medicine; Emergency Provider Student in an Organized Health Care Education/Training Program; Visit Provider Internal Medicine
DX: I63.9 Cerebral infarction, unspecified (principal); R29.702 NIHSS score 2; I10 Essential (primary) hypertension; Z86.73 Personal history of transient ischemic attack (TIA), and cerebral infarction without residual deficits; F10.239 Alcohol dependence with withdrawal, unspecified; F17.210 Nicotine dependence, cigarettes, uncomplicated; Z87.19 Personal history of other diseases of the digestive system
CPT/HCPCS: 36415; 70450; 80053; 80061; 83036; 85025; 85610; 85730; 92523; 92610; 93005; 93880; 96372; 97116; 97161; 97165; 99285; C8929; G0378; J1650; J9999